=== PATIENT | female | born 1980 | race Caucasian/White ===

== ENCOUNTER 2022-08-29 08:48 | Day surgery (SDC) | payer OTHER ==
[2022-08-22 12:01] LABS: Absolute Lymphocytes (CBC) 1.6 K/uL (0.7-4.9); Hematocrit 45.4 % (36.0-45.0); Lymphocytes % 11.4 % (15.3-44.8); MCV 85.2 fL (80-100); MPV 9.2 fL (7.6-11.3); RBC Red Blood Cell Count 5.33 M/uL (3.86-4.86)
[2022-08-22 12:02] LABS: Protime INR 1.16
[2022-08-22 12:12] LABS: Potassium 3.7 mmol/L (3.5-5.1)
[2022-08-29] MEDS ORDERED: Ringers Lactate 1,000 ML IV ONE (09:26)
[2022-08-29] MEDS ORDERED: CEFAZOLIN SODIUM 2 GM/VIAL ONE (09:26)
[2022-08-29 10:01] LABS: Urine Specific Gravity/Preg >1.030 (1.005-1.030)
[2022-08-29] MEDS ORDERED: NS 0.9% VIAL 10 ML ONE (13:07)
[2022-08-29] MEDS ORDERED: propofoL 200 MG/20 ML VIAL IV ONE (13:07)
[2022-08-29] MEDS ORDERED: LIDOCAINE 1% MPF 5 ML VIAL ONE (13:07)
[2022-08-29] MEDS ORDERED: FENTANYL CITR 100 MCG/2 ML ONE (13:07)
[2022-08-29] MEDS ORDERED: MIDAZOLAM HCL 2 MG/2 ML INJ ONE (13:07)
[2022-08-29] MEDS ORDERED: dexAMETHasone 10 MG/ML VIAL ONE (13:54)
[2022-08-29] MEDS ORDERED: ONDANSETRON 4 MG/2 ML VIAL ONE (13:55)
--- NOTE | 2022-08-29 14:42 | RAD REPORT ---
EXAM DESCRIPTION: RAD - Urethrocystogrphy Retrograde - 08/29/2022 2:32 pm CLINICAL HISTORY: RETROGRADE RT STENT PLACEMENT COMPARISON: Cystography dated 07/28/2022 FINDINGS: Total fluoro time: 18 seconds
[2022-08-29] MEDS ORDERED: PHENAZOPYRIDINE 100MG TAB PO ONE (14:59)
[2022-08-29] MEDS ORDERED: HYDROCODONE/APAP 7.5/325 MG TAB ONE (15:26)
[2022-08-29 15:48] VITALS: BP 109/65; TEMP 97.2; O2SAT 98
[2022-08-29] MEDS ORDERED: KETOROLAC 30 MG/ML INJ IV ONE (16:12)
[2022-08-29] MEDS ORDERED: KETOROLAC 30 MG/ML INJ ONE (16:20)
--- NOTE | 2022-08-29 17:17 | OP ---
Surgeon: TANO COTTRELL Preoperative Diagnoses: 1.Right flank pain, chronic. 2.Extrarenal pelvis. Postoperative Diagnoses: 1.Right flank pain, chronic. 2.Extrarenal pelvis. Principal Procedures: 1.Cystoscopy. 2.Right retrograde pyelography. 3.Right ureteral stent placement. Indication For Procedure: Ms. Jansen presented to [facility] with chronic right flank pain, havi ng undergone imaging that showed no abnormality or obstructing calculus, but suggestion of a potentia l extrarenal pelvis. Since there was a concern for possible UPJ obstruction underlying this pain, e was sent for urologic evaluation. A MAG3 Lasix renogram was performed and revealed an absence of a ny significant obstruction, though there was slight delayed drainage on the right relative to the lef t. As a result only because she was having severe discomfort and this was bothersome for her over an extended period time, we discussed options for assessing whether there might be any obstruction and if relief of that might improve her pain. She thus presents today for evaluation. Procedure In Detail: The patient was consented in the preoperative holding area before being transfe rred to the operative suite where general anesthesia was induced. She was given Ancef 2 g IV antimic robial prophylaxis and pneumo boots were provided for DVT prophylaxis. She was placed in the lithoto my position, padded and secured to the table appropriately. Her genitalia were prepped with Hibiclen s and she was draped in standard fashion. The case was begun using a 22-Andorran rigid cystoscope to t raverse the urethra and into the bladder with ease. The bladder was surveyed in its entirety, and th ere were no papillary mucosal lesions, foreign bodies, or stones throughout. The ureteral orifices w ere orthotopic in location, and non-stenotic in appearance. The right ureteral orifice was then dorene ulated using the tip of a Sensor wire and a 5-Andorran ureteral access catheter with ease. A retrograd e pyelogram was then performed. Right retrograde pyelography: Using a 70:30 mixture of Omnipaque and saline, contrast was injected via the lumen of the 5-Andorran ur eteral access catheter and did propagate up a nondilated distal into the mid and proximal ureter befo re entering the renal pelvis, which did probably fill without signs of pelvocaliectasis. The calyces were sharp and there was no angling of the ureter as it entered the renal pelvis; thus there was no evidence of UPJ obstruction. There were also no filling defects within the renal pelvis or calyces o r within the proximal, mid or distal ureter. The 5-Andorran ureteral access catheter was then removed, and we observed the collecting system for drainage. After 1 minute of observation, there was perhap s 5% to 10% of the drainage that had occurred. After 2 minutes of observation, there was still only about 25% of drainage that occurred by about 4 minutes of observation, over 50% of the contrast had e vacuated the collecting system. There were excellent and adequate ureteral jets noted coming from th e ureteral orifices, which were visible cystoscopically. There was no significant blood draining fro m the collecting system. As a result, to complete the evaluation as previously discussed with the jesus menendez, I then passed the Sensor wire into the collecting system again and coiled it within the upper pole. Over the Sensor wire, I passed a 7-Andorran by 28 cm double-J ureteral stent left on its tether, using a 28-Andorran only because that was the only size we had available that would adequately ivan e the entirety of her collecting system. The stent had a coil observed fluoroscopically within the r enal pelvis and 1 cystoscopically was formed within the bladder. It was left on its tether, which wa s then secured to her introitus using Mastisol and Steri-Strips after I decompressed her bladder of f luid and urine. She was then taken out of the lithotomy position, awakened from general anesthesia, transferred to a stretcher, and then transferred to the recovery room in good condition. Complications: None. Discharge Disposition: She will be allowed the next week and perhaps a couple of days beyond that to assess whether she has significant relief of the character and quality of her pain in the right flan k with the stent in place. If so, we will have to discuss the potential role for management of some functional obstruction without anatomic correlate and potentially look for signs of disease like tiss ue encompassing the ureter that may benefit from surgical therapy. If there is no significant change in the quality or character of her right flank pain, we should remove that stent before next Thursda y at the latest. Since it is on a tether, it may be removed with ease. She may be given a dose of a ntimicrobial prophylaxis, Macrobid, at the time of stent removal. Subsequent followup may require ev aluation of her hepatic biliary tree to assess for obstruction there that may be contributing to her pain versus another vascular or retroperitoneal abnormality potentially contributory. INCHOLAS/KEITH Voice ID: [id number] Report ID: [id number]
== END 2022-08-29 16:51 | disposition home or self-care (01) ==
LOC: OR 08:48
PROVIDERS: ATTEND Urology
PROC: 0T768DZ Dilation of Right Ureter with Intraluminal Device, Via Natural or Artificial Opening Endoscopic (ICD-10-PCS; principal; 2022-08-29 11:00)
DX: R10.31 Right lower quadrant pain (principal); N13.30 Unspecified hydronephrosis; R39.2 Extrarenal uremia
CPT/HCPCS: 93005; 87088; 85025; 87086; 80048; 36415; 81025; 85610; 74450; 51610; 52332; J2704; J2001; J2250; J3010; J1100; A4216; J7120; J2405

== ENCOUNTER 2022-09-07 05:09 | Inpatient (IN) | payer OTHER ==
--- OUTSIDE RECORDS SUMMARY | 2022-09-07 05:15 | XMS REPORT | Continuity of Care Document ---
:1980 Author Organization [facility] t Address [address] [place] [address] Care Team Providers Name Role Phone ORACIO ARGUETA Primary Care Physician Unavailable JENNIFER JACOBS Attending Clinician Unavailable ERA MARTINEZ Attending Clinician Unavailable Jennifer Jacobs MD Attending Clinician Doctor Unassigned, Rhame Attending Clinician Unavailable ERICK SALINAS Attending Clinician Unavailable RADIOLOGY Attending Clinician Unavailable Radiology Attending Clinician Unavailable Aurora Rossi MD Attending Clinician Terence Landry Attending Clinician AURORA ROSSI Attending Clinician Unavailable UNKNOWN, ATTENDING Attending Clinician Unavailable KHOI BRO Attending Clinician Unavailable Khoi Bro MD Attending Clinician JUSTIN SWEET Attending Clinician Unavailable Justin Sweet PA-C Attending Clinician RICKY TEMPLETON Attending Clinician Unavailable RICKY TEMPLETON Attending Clinician Unavailable Ricky Templeton Attending Clinician Bill Watts MD Attending Clinician BLUE AYALA Attending Clinician Unavailable Blue Ayala MD Attending Clinician 2, [facility] Attending Clinician Unavailable MICHEL MALHOTRA Attending Clinician Unavailable SEVEN WILLOUGHBY Attending Clinician Unavailable Seven Willoughby DO Attending Clinician Leonard CHEATHAM, Fozia Stapleton Attending Clinician Unavailable Nita Devries LMSW Attending Clinician Unavailable TERENCE BRAR Attending Clinician Unavailable REMINGTON DIOP Attending Clinician Unavailable ROHAN HERZOG Attending Clinician Unavailable RALEIGH MELISSA Attending Clinician Unavailable DONTA ROSADO Attending Clinician Unavailable DANNIELLE SHAH Attending Clinician Unavailable PRO PETERSON Attending Clinician Unavailable SHERMAN SAMANIEGO Admitting Clinician Unavailable JENNIFER JACOBS Admitting Clinician Unavailable KHOI BRO Admitting Clinician Unavailable JUSTIN SWEET Admitting Clinician Unavailable RICKY TEMPLETON Admitting Clinician Unavailable BLUE AYALA Admitting Clinician Unavailable SEVEN WILLOUGHBY Admitting Clinician Unavailable ROHAN HERZOG Admitting Clinician Unavailable Payers Payer Name Policy Type Policy Number Effective Date Expiration Date S edith [facility] [id number] 2020 HEALTH 00:00:00 [place]ICAID [place] [id number] 2020 00:00:00 [place] [id number] 2021 EMPLOYEE-AETNA 00:00:00 OPEN ACCESS [id number] HMO/POS/EPO/PPO - AETNA [place] [facility] [id number] [employer] AETNA [facility] [id number] 2021 ACCESS 00:00:00 Problems Condition Condition Condition Status Onset Resolution Last Treating Co mments Source Name Details Category Date Date Treatment Clinician Date Other Other Disease Active Univers general general 2-12 [place] counseling [place] and advice and advice 00 [place] dical for [facility] contracept contracept kelby kelby management management Pain Pain Disease Active 2019-07 Univers pelvic pelvic 1-16 ity of 00:: [address] BMI BMI Disease Active 2019-07 Univers 36.0-36.9, 36.0-36.9, 1-16 it y of adult adult 00:00: [address] History of History of Disease Active U nivers tubal tubal 2-20 ity of ligation ligation 00:: [address] Screen for Screen for Disease Active U nivers STD STD 2-20 [place] of (sexually ([place] transmit[place] transmitte 00 Me dical d disease) d disease) Br anch Class 2 Class 2 Disease Active Univers obesity obesity 2-20 [place] with body [place] mass index mass index 00 Me dical (BMI) of (BMI) of Branch 36.0 to 36.0 to 36.9 in 36.9 in adult, adult, unspecifie unspecifie d obesity d obesity type, type, unspecifie unspecifie d whether d whether serious serious comorbidit comorbidit y present y present [id number] Unspecifie Problem Co mmon d Spirit abdominal - [facility] [id number] Other Problem Common chronic Spirit pain - [facility] [id number] Hydronephr Problem Com mon osis, Spirit right - [facility] Allergies, Adverse Reactions, Alerts Allergy Allergy Status Severity Reaction(s) Onset Inactive Treating Comm ents Source Name Type Date Date Clinician LEVONORG DRUG Active Other-Cmnt Univ ers ESTREL-E 916 ity of THINYL 00:00: [place] ESTRAD 00 Medical Branch Levonorg Propensi Active Other - See Itchy U nivers estrel-E ty to comments 16 eyes ity of thinyl adverse 00:00: runny [place] Estrad reaction 00 nose [facility] s Branch PROMETHA DRUG Active Dizziness Unive rs ZINE HCL INGREDI 16 ity of 00:00: Medical Branch Prometha Drug Active Dizziness Unive rs zine Hcl Intolera 16 ity of nce 00:00: [place] [facility] Penicill Propensi Active Anaphylaxis Patient Univers ins ty to 10-21 states ity of adverse 00:00: that [place] reaction 00 mother Medical s told her Branch as a child she was allergic to PCN. Patient states she has previousl y had PCN without any reactions noted. Patient states she tolerates PCN well and has had it in the past. PENICILL Drug Active Anaphylaxis Uni vers INS Class 10-21 ity of 00:00: [place] [facility] Penicill Propensi Active Anaphylaxis Patient Univers ins ty to 10-21 states ity of adverse 00:00: that [place] reaction 00 mother Medical s told her Branch as a child she was allergic to PCN. Patient states she has previousl y had PCN without any reactions noted. Patient states she tolerates PCN well and has had it in the past. NO KNOWN Allergy Active [facility] Social History Social Habit Start Date Stop Date Quantity Comments Source History of Common Spirit - Tobacco Use [facility] Exposure to 2022-05-23 2022-06-02 Not sure University of SARS-CoV-2 00:00:00 09:48:00 [facility] [place] [facility] (event) Branch Alcohol intake 2021-12-20 2021-12-20 Current drinker [facility] Rufina Donovan 00:00:00 00:00:00 of [facility] (finding) Tobacco use and 2021-12-09 2021-12-09 Never used [facility] exposure 00:00:00 00:00:00 Medical Center History [facility] 2020-06-07 2020-06-07 4 University o f Alcohol Frequency 00:00:00 00:00:00 [place] [facility] History SDOH 2020-06-07 2020-06-07 99 University o f Alcohol Std 00:00:00 00:00:00 [place] Medical Drinks Branch History [facility] 2020-06-07 2020-06-07 99 University o f Alcohol Binge 00:00:00 00:00:00 [facility] [place] Alcohol Comment 2020-06-07 2020-06-07 not often Universit y of 00:00:00 00:00:00 [facility] Sex Ass[birth year] At [birth year] [facility] 00:00:00 00:00:00 Medical Center Smoking Status Start Date Stop Date Source Never Smoker Common Spirit - [facility] Medications Ordered Filled Start Stop Current Ordering Indication Dosage Frequency Signature Comments Components Source Medication Medication Date Date Medication? Clinician (SIG) Name Name iopamidol 2021-07- No [id number] 84mL 84 mL, U nivkeith (ISOVUE 08-03 Intravenou ity o f 370-500 mL) 16:45: 15:42 s, ONCE, 1 [place] injection 00 :00 dose, On Medica l 84 mL Sat Branch 06/03/22 at 1045, Routine losartan 50 2021-07- No 25mg Take 25 mg Univers mg tablet 08-02 by mouth ity o f 10:09: 00:00 in the [place] 46 :00 morning. Medical Before Branch bedtime losartan 50 2021-07- No 25mg Take 25 mg Univers mg tablet 08-02 by mouth ity o f 10:09: 00:00 in the [place] 46 :00 morning. Medical Before Branch bedtime losartan 50 2021-07- No 25mg Take 25 mg Univers mg tablet 08-02 by mouth ity o f 10:09: 00:00 in the [place] 46 :00 morning. Medical Before Branch bedtime losartan 50 2021-07- No 25mg Take 25 mg Univers mg tablet 08-02 by mouth ity o f 10:09: 00:00 in the [place] 46 :00 morning. Medical Before Branch bedtime metoprolol 2021-07 Yes [id number] 25mg Take 1 Univers succinate 1-11 tablet by ity o f XL 25 mg 24 00:00: mouth in [place] hr tablet 00 the Medical morning. Branch metoprolol 2021-07 Yes [id number] 25mg Take 1 Univers succinate 1-11 tablet by ity o f XL 25 mg 24 00:00: mouth in [place] hr tablet 00 the Medical morning. Branch metoprolol 2021-07 Yes [id number] 25mg Take 1 Univers succinate 1-11 tablet by ity o f XL 25 mg 24 00:00: mouth in [place] hr tablet 00 the Medical morning. Branch metoprolol 2021-07 Yes [id number] 25mg Take 1 Univers succinate 1-11 tablet by ity o f XL 25 mg 24 00:00: mouth in [place] hr tablet 00 the Medical morning. Branch metoprolol 2021-07 Yes [id number] 25mg Take 1 Univers succinate 1-11 tablet by ity o f XL 25 mg 24 00:00: mouth in [place] hr tablet 00 the Medical morning. Branch metoprolol 2021-07 Yes [id number] 25mg Take 1 Univers succinate 1-11 tablet by ity o f XL 25 mg 24 00:00: mouth in [place] hr tablet 00 the Medical morning. Branch metoprolol 2021-07 Yes [id number] 25mg Take 1 Univers succinate 1-11 tablet by ity o f XL 25 mg 24 00:00: mouth in [place] hr tablet 00 the Medical morning. Branch metoprolol 2021-07 Yes [id number] 25mg Take 1 Univers succinate 1-11 tablet by ity o f XL 25 mg 24 00:00: mouth in [place] hr tablet 00 the Medical morning. Branch metoprolol 2021-07 Yes [id number] 25mg Take 1 Univers succinate 1-11 tablet by ity o f XL 25 mg 24 00:00: mouth in [place] hr tablet 00 the Medical morning. Branch metoprolol 2021-07 Yes [id number] 25mg Take 1 Univers succinate 1-11 tablet by ity o f XL 25 mg 24 00:00: mouth in [place] hr tablet 00 the Medical morning. Branch metoprolol 2021-07 Yes [id number] 25mg Take 1 Univers succinate 1-11 tablet by ity o f XL 25 mg 24 00:00: mouth in [place] hr tablet 00 the Medical morning. Branch metoprolol 2021-07 Yes [id number] 25mg Take 1 Univers succinate 1-11 tablet by ity o f XL 25 mg 24 00:00: mouth in [place] hr tablet 00 the Medical morning. Branch metoprolol 2021-07 Yes [id number] 25mg Take 1 Univers succinate 1-11 tablet by ity o f XL 25 mg 24 00:00: mouth in [place] hr tablet 00 the Medical morning. Branch metoprolol 2021-07 Yes [id number] 25mg Take 1 Univers succinate 1-11 tablet by ity o f XL 25 mg 24 00:00: mouth in [place] hr tablet 00 the Medical morning. Branch metoprolol 2021-07 Yes [id number] 25mg Take 1 Univers succinate 1-11 tablet by ity o f XL 25 mg 24 00:00: mouth in [place] hr tablet 00 the Medical morning. Branch metoprolol 2021-07 Yes [id number] 25mg Take 1 Univers succinate 1-11 tablet by ity o f XL 25 mg 24 00:00: mouth in [place] hr tablet 00 the Medical morning. Branch metoprolol 2021-07 Yes [id number] 25mg Take 1 Univers succinate 1-11 tablet by ity o f XL 25 mg 24 00:00: mouth [place] hr tablet 00 the Medical morning. Branch ketorolac 2021-07- No [id number] 30mg Uni vers (TORADOL) 07-31 ity of injection 01:00: 00:23 [place] 30 mg 00 :00 [facility] ketorolac 2021-07- No [id number] 30mg 30 mg, U nivers (TORADOL) 07-31 Intramuscu ity of injection 01:00: 00:23 [place], ONCE, [place] 30 mg 00 :00 1 dose, On Medical Tue Branch 05/30/22 at 1900, Routine tamsulosin 2021-07 Yes [id number] .4mg Take 1 U nivers (FLOMAX) 1-08 capsule by ity o f 0.4 mg 24 00:00: [place] capsule 00 the Medical morning. [place] tamsulosin 2021-07 Yes [id number] .4mg Take 1 U nivers (FLOMAX) 1-08 capsule by ity o f 0.4 mg 24 00:00: [place] capsule 00 the Medical morning. Branch tamsulosin 2021-07 Yes [id number] .4mg Take 1 U nivers (FLOMAX) 1-08 capsule by ity o f 0.4 mg 24 00:00: [place] capsule 00 the Medical morning. [place] tamsulosin 2021-07 Yes [id number] .4mg Take 1 U nivers (FLOMAX) 1-08 capsule by ity o f 0.4 mg 24 00:00: [place] capsule 00 the Medical morning. Branch tamsulosin 2021-07 Yes [id number] .4mg Take 1 U nivers (FLOMAX) 1-08 capsule by ity o f 0.4 mg 24 00:00: [place] capsule 00 the Medical morning. Branch tamsulosin 2021-07 Yes [id number] .4mg Take 1 U nivers (FLOMAX) 1-08 capsule by ity o f 0.4 mg 24 00:00: [place] capsule 00 the Medical morning. Branch tamsulosin 2021-07 Yes [id number] .4mg Take 1 U nivers (FLOMAX) 1-08 capsule by ity o f 0.4 mg 24 00:00: [place] hr capsule 00 the Medical morning. Branch tamsulosin 2021-07 Yes [id number] .4mg Take 1 U nivers (FLOMAX) 1-08 capsule by ity o f 0.4 mg 24 00:00: [place] hr capsule 00 the Medical morning. Branch tamsulosin 2021-07 Yes [id number] .4mg Take 1 U nivers (FLOMAX) 1-08 capsule by ity o f 0.4 mg 24 00:00: [place] hr capsule 00 the Medical morning. Branch tamsulosin 2021-07 Yes [id number] .4mg Take 1 U nivers (FLOMAX) 1-08 capsule by ity o f 0.4 mg 24 00:00: [place] hr capsule 00 the Medical morning. Branch tamsulosin 2021-07 Yes [id number] .4mg Take 1 U nivers (FLOMAX) 1-08 capsule by ity o f 0.4 mg 24 00:00: [place] hr capsule 00 the Medical morning. Branch tamsulosin 2021-07 Yes [id number] .4mg Take 1 U nivers (FLOMAX) 1-08 capsule by ity o f 0.4 mg 24 00:00: [place] hr capsule 00 the Medical morning. Branch tamsulosin 2021-07 Yes [id number] .4mg Take 1 U nivers (FLOMAX) 1-08 capsule by ity o f 0.4 mg 24 00:00: [place] hr capsule 00 the Medical morning. Branch tamsulosin 2021-07 Yes [id number] .4mg Take 1 U nivers (FLOMAX) 1-08 capsule by ity o f 0.4 mg 24 00:00: [place] capsule 00 the Medical morning. Branch tamsulosin 2021-07 Yes [id number] .4mg Take 1 U nivers (FLOMAX) 1-08 capsule by ity o f 0.4 mg 24 00:00: [place] hr capsule 00 the Medical morning. Branch tamsulosin 2021-07 Yes [id number] .4mg Take 1 U nivers (FLOMAX) 1-08 capsule by ity o f 0.4 mg 24 00:00: mouth [place] hr capsule 00 the Medical morning. Branch tamsulosin 2021-07 Yes [id number] .4mg Take 1 U nivers (FLOMAX) 1-08 capsule by ity o f 0.4 mg 24 00:00: mouth [place] hr capsule 00 the Medical morning. Branch tamsulosin 2021-07 Yes [id number] .4mg Take 1 U nivers (FLOMAX) 1-08 capsule by ity o f 0.4 mg 24 00:00: [place] hr capsule 00 the Medical morning. Branch ciprofloxac 2021-07- No [id number] 250mg Take 1 Univers in HCl 250 07-30-14 tablet by ity of mg tablet 00:00: 05:59 mouth [place] 00 :00 every 12 Medical (twelve) Branch hours for 5 days. ciprofloxac 2021-07- No [id number] 250mg Take 1 Univers in HCl 250 07-3014 tablet by ity of mg tablet 00:00: 05:59 mouth [place] 00 :00 every 12 Medical (twelve) Branch hours for 5 days. ciprofloxac 2021-07- No [id number] 250mg Take 1 Univers in HCl 250 07-3014 tablet by ity of mg tablet 00:00: 05:59 mouth [place] 00 :00 every 12 Medical (twelve) Branch hours for 5 days. ciprofloxac 2021-07- No [id number] 250mg Take 1 Univers in HCl 250 07-3014 tablet by ity of mg tablet 00:00: 05:59 mouth [place] 00 :00 every 12 Medical (twelve) Branch hours for 5 days. ciprofloxac 2021-07- No [id number] 250mg Take 1 Univers in HCl 250 07-3014 tablet by ity of mg tablet 00:00: 05:59 mouth [place] 00 :00 every 12 Medical (twelve) Branch hours for 5 days. ciprofloxac 2021-07- No [id number] 250mg Take 1 Univers in HCl 250 07-30-14 tablet by ity of mg tablet 00:00: 05:59 mouth [place] 00 :00 every 12 Medical (twelve) Branch hours for 5 days. losartan 50 2021-07 Yes 25mg Take 25 mg Univers mg tablet 07-23 by mouth ity of 13:56: in the [place] [address] morning. Medical Before Branch bedtime losartan 50 2021-07 Yes 25mg Take 25 mg Univers mg tablet 01 by mouth ity of 13:56: in the [place] [address] morning. Medical Before Branch bedtime losartan 50 2021-07 Yes 25mg Take 25 mg Univers mg tablet 01 by mouth ity of 13:56: in the [place] [address] morning. Medical Before Branch bedtime losartan 50 2021-07 Yes 25mg Take 25 mg Univers mg tablet 07-23 by mouth ity of 13:56: in the [place] [address] morning. Medical Before Branch bedtime ketorolac 2021- No [id number] 30mg 30 mg, Univers (TORADOL) 04-07 Slow IV ity of injection 11:15: 10:14 Push, [place] 30 mg 00 :00 ONCE, 1 Medical dose, On Branch 04/07/22 at 0615, Routine azithromyci 2021- No [id number] 250mg Take 1 Univers n 250 mg 04-07 tablet by ity o f tablet 00:00: 04:59 mouth [place] 00 :00 SEE-INSTRU Medical CTIONS for Branch 5 days. Take 500 mg day 1, then 250 mg days 2 to 5. losartan Yes 25mg QD Take [address] (COZAAR) 25 12-21 by mouth [facility] MG tablet 14:55: daily. Medica l 01 Center omeprazole Yes 40mg QD Take [address] (PriLOSEC) 6 by mouth [facility] 40 MG 14:55: daily. Medical capsule 01 Center dicyclomine Yes 10mg Take [address] [facility] [facility] (BENTYL) 10 6-01 by mouth 4 Katty kes MG capsule 14:55: (four) Medic al 01 times Center daily before meals and nightly. barium 2021- No [id number] 340g 340 g, Univ ers sulfate 12-07 Oral, ity of (LIQUID E-Z 16:15: 13:00 ONCE, 1 [place] PAQUE[place] 60 % 00 :00 dose, On Medi chayito (w/v) oral Wed Branch suspension 12/07/21 at 340 g 1115, Routine Diclofenac 2022-0 Yes diclofenac U nivers Sodium 1 % 5-05 1 % ity of gel 09:29: topical [place] 38 gel APPLY Medical 2 GRAMS TO Branch THE AFFECTED AREA(S) BY TOPICAL ROUTE 4 TIMES PER DAY Diclofenac 2021-0 Yes diclofenac U nivers Sodium 1 % 5-05 1 % ity of gel 09:29: topical [place] 38 gel APPLY Medical 2 GRAMS TO Branch THE AFFECTED AREA(S) BY TOPICAL ROUTE 4 TIMES PER DAY Diclofenac 2021-0 Yes diclofenac U nivers Sodium 1 % 5-05 1 % ity of gel 09:29: topical [place] 38 gel APPLY Medical 2 GRAMS TO Branch THE AFFECTED AREA(S) BY TOPICAL ROUTE 4 TIMES PER DAY Diclofenac 2021-0 Yes diclofenac U nivers Sodium 1 % 5-05 1 % ity of gel 09:29: topical [place] 38 gel APPLY Medical 2 GRAMS TO Branch THE AFFECTED AREA(S) BY TOPICAL ROUTE 4 TIMES PER DAY Diclofenac Yes diclofenac U nivers Sodium 1 % 5-05 1 % ity of gel 09:29: topical [place] 38 gel APPLY Medical 2 GRAMS TO Branch THE AFFECTED AREA(S) BY TOPICAL ROUTE 4 TIMES PER DAY Diclofenac 2021- Yes diclofenac U nivers Sodium 1 % 5-05 1 % ity of gel 09:29: topical [place] 38 gel APPLY Medical 2 GRAMS TO Branch THE AFFECTED AREA(S) BY TOPICAL ROUTE 4 TIMES PER DAY Diclofenac 0 Yes diclofenac U nivers Sodium 1 % 5-05 1 % ity of gel 09:29: topical [place] 38 gel APPLY Medical 2 GRAMS TO Branch THE AFFECTED AREA(S) BY TOPICAL ROUTE 4 TIMES PER DAY Diclofenac 2021-0 Yes diclofenac U nivers Sodium 1 % 5-05 1 % ity of gel 09:29: topical [place] 38 gel APPLY Medical 2 GRAMS TO Branch THE AFFECTED AREA(S) BY TOPICAL ROUTE 4 TIMES PER DAY Diclofenac 2021-0 Yes diclofenac U nivers Sodium 1 % 5-05 1 % ity of gel 09:29: topical [place] 38 gel APPLY Medical 2 GRAMS TO Branch THE AFFECTED AREA(S) BY TOPICAL ROUTE 4 TIMES PER DAY Diclofenac 2021-0 Yes diclofenac U nivers Sodium 1 % 5-05 1 % ity of gel 09:29: topical [place] 38 gel APPLY Medical 2 GRAMS TO Branch THE AFFECTED AREA(S) BY TOPICAL ROUTE 4 TIMES PER DAY Diclofenac 2021-0 Yes diclofenac U nivers Sodium 1 % 5-05 1 % ity of gel 09:29: topical [place] 38 gel APPLY Medical 2 GRAMS TO Branch THE AFFECTED AREA(S) BY TOPICAL ROUTE 4 TIMES PER DAY Diclofenac 2022-0 Yes diclofenac U nivers Sodium 1 % 5-05 1 % ity of gel 09:29: topical [place] 38 gel APPLY Medical 2 GRAMS TO Branch THE AFFECTED AREA(S) BY TOPICAL ROUTE 4 TIMES PER DAY Diclofenac 2021-0 Yes diclofenac U nivers Sodium 1 % 5-05 1 % ity of gel 09:29: topical [place] 38 gel APPLY Medical 2 GRAMS TO Branch THE AFFECTED AREA(S) BY TOPICAL ROUTE 4 TIMES PER DAY Diclofenac 2021-0 Yes diclofenac U nivers Sodium 1 % 5-05 1 % ity of gel 09:29: topical [place] 38 gel APPLY Medical 2 GRAMS TO Branch THE AFFECTED AREA(S) BY TOPICAL ROUTE 4 TIMES PER DAY Diclofenac 2021-0 Yes diclofenac U nivers Sodium 1 % 5-05 1 % ity of gel 09:29: topical [place] 38 gel APPLY Medical 2 GRAMS TO Branch THE AFFECTED AREA(S) BY TOPICAL ROUTE 4 TIMES PER DAY Diclofenac 2021-0 Yes diclofenac U nivers Sodium 1 % 5-05 1 % ity of gel 09:29: topical [place] 38 gel APPLY Medical 2 GRAMS TO Branch THE AFFECTED AREA(S) BY TOPICAL ROUTE 4 TIMES PER DAY Diclofenac 2021-0 Yes diclofenac U nivers Sodium 1 % 5-05 1 % ity of gel 09:29: topical [place] 38 gel APPLY Medical 2 GRAMS TO Branch THE AFFECTED AREA(S) BY TOPICAL ROUTE 4 TIMES PER DAY Diclofenac 2021-0 Yes diclofenac U nivers Sodium 1 % 5-05 1 % ity of gel 09:29: topical [place] 38 gel APPLY Medical 2 GRAMS TO Branch THE AFFECTED AREA(S) BY TOPICAL ROUTE 4 TIMES PER DAY Diclofenac 2021-0 Yes diclofenac U nivers Sodium 1 % 5-05 1 % ity of gel 09:29: topical [place] 38 gel APPLY Medical 2 GRAMS TO Branch THE AFFECTED AREA(S) BY TOPICAL ROUTE 4 TIMES PER DAY Diclofenac 202-0 Yes diclofenac U nivers Sodium 1 % 5-05 1 % ity of gel 09:29: topical [place] 38 gel APPLY Medical 2 GRAMS TO Branch THE AFFECTED AREA(S) BY TOPICAL ROUTE 4 TIMES PER DAY Diclofenac 202-0 Yes diclofenac U nivers Sodium 1 % 5-05 1 % ity of gel 09:29: topical [place] 38 gel APPLY Medical 2 GRAMS TO Branch THE AFFECTED AREA(S) BY TOPICAL ROUTE 4 TIMES PER DAY Diclofenac 202-0 Yes diclofenac U nivers Sodium 1 % 5-05 1 % ity of gel 09:29: topical [place] 38 gel APPLY Medical 2 GRAMS TO Branch THE AFFECTED AREA(S) BY TOPICAL ROUTE 4 TIMES PER DAY Diclofenac 2021-0 Yes diclofenac U nivers Sodium 1 % 5-05 1 % ity of gel 09:29: topical [place] 38 gel APPLY Medical 2 GRAMS TO Branch THE AFFECTED AREA(S) BY TOPICAL ROUTE 4 TIMES PER DAY Diclofenac 2021-0 Yes diclofenac U nivers Sodium 1 % 5-05 1 % ity of gel 09:29: topical [place] 38 gel APPLY Medical 2 GRAMS TO Branch THE AFFECTED AREA(S) BY TOPICAL ROUTE 4 TIMES PER DAY Diclofenac Yes diclofenac U nivers Sodium 1 % 5-05 1 % ity of gel 09:29: topical [place] 38 gel APPLY Medical 2 GRAMS TO Branch THE AFFECTED AREA(S) BY TOPICAL ROUTE 4 TIMES PER DAY Diclofenac 2021- Yes diclofenac U nivers Sodium 1 % 5-05 1 % ity of gel 09:29: topical [place] 38 gel APPLY Medical 2 GRAMS TO Branch THE AFFECTED AREA(S) BY TOPICAL ROUTE 4 TIMES PER DAY Diclofenac 2021-0 Yes diclofenac U nivers Sodium 1 % 5-05 1 % ity of gel 09:29: topical [place] 38 gel APPLY Medical 2 GRAMS TO Branch THE AFFECTED AREA(S) BY TOPICAL ROUTE 4 TIMES PER DAY Diclofenac 2021-0 Yes diclofenac U nivers Sodium 1 % 5-05 1 % ity of gel 09:29: topical [place] 38 gel APPLY Medical 2 GRAMS TO Branch THE AFFECTED AREA(S) BY TOPICAL ROUTE 4 TIMES PER DAY Diclofenac 2021-0 Yes diclofenac U nivers Sodium 1 % 5-05 1 % ity of gel 09:29: topical [place] 38 gel APPLY Medical 2 GRAMS TO Branch THE AFFECTED AREA(S) BY TOPICAL ROUTE 4 TIMES PER DAY Diclofenac 0 Yes diclofenac U nivers Sodium 1 % 5-05 1 % ity of gel 09:29: topical [place] 38 gel APPLY Medical 2 GRAMS TO Branch THE AFFECTED AREA(S) BY TOPICAL ROUTE 4 TIMES PER DAY WEGOVY 0.5 Yes Univers mg/0.5 mL 3- ity of PnIj SC 00:00: [place] injection 00 Medical Branch omeprazole 0 Yes Univers 40 mg 3-29 ity of capsule 00:00: Medical Branch WEGOVY 0.5 2021-0 Yes Univers mg/0.5 mL 3-29 ity of PnIj SC 00:00: [place] injection Medical Branch omeprazole 2021-0 Yes Univers 40 mg 3-29 ity of capsule 00:00: Medical Branch WEGOVY 0.5 2021-0 Yes Univers mg/0.5 mL 3-29 ity of PnIj SC 00:00: [place] injection Medical Branch omeprazole 0 Yes Univers 40 mg 3-29 ity of capsule 00:00: [place] [facility] WEGOVY 0.5 0 Yes Univers mg/0.5 mL 3-29 ity of PnIj SC 00:00: [place] injection Medical Branch omeprazole 0 Yes Univers 40 mg 3-29 ity of capsule 00:00: [place] [facility] WEGOVY 0.5 0 Yes Univers mg/0.5 mL 3-29 ity of PnIj SC 00:00: [place] injection Medical Branch omeprazole 2021-0 Yes Univers 40 mg 3-29 ity of capsule 00:00: [place] [facility] WEGOVY 0.5 2021-0 Yes Univers mg/0.5 mL 3-29 ity of PnIj SC 00:00: [place] injection Medical Branch omeprazole 2021-0 Yes Univers 40 mg 3-29 ity of capsule 00:00: [place] [facility] WEGOVY 0.5 2021-0 Yes Univers mg/0.5 mL 3-29 ity of PnIj SC 00:00: [place] injection Medical Branch omeprazole 2021-0 Yes Univers 40 mg 3-29 ity of capsule 00:00: [place] [facility] WEGOVY 0.5 2021-0 Yes Univers mg/0.5 mL 3-29 ity of PnIj SC 00:00: [place] injection Medical Branch omeprazole 2021-0 Yes Univers 40 mg 3-29 ity of capsule 00:00: [place] [facility] WEGOVY 0.5 2021-0 Yes Univers mg/0.5 mL 3-29 ity of PnIj SC 00:00: [place] injection Medical Branch omeprazole 2021-0 Yes Univers 40 mg 3-29 ity of capsule 00:00: [place] [facility] Branch WEGOVY 0.5 2021-0 Yes Univers mg/0.5 mL 3-29 ity of PnIj SC 00:00: [place] injection Medical Branch omeprazole 2021-0 Yes Univers 40 mg 3-29 ity of capsule 00:00: [place] Medical Branch WEGOVY 0.5 2021-0 Yes Univers mg/0.5 mL 3-29 ity of PnIj SC 00:00: [place] injection [facility] omeprazole 2021-0 Yes Univers 40 mg 3-29 ity of capsule 00:00: [place] [facility] WEGOVY 0.5 2021-0 Yes Univers mg/0.5 mL 3-29 ity of PnIj [place] 00:00: [place] [facility] omeprazole 2021-0 Yes Univers 40 mg 3-29 ity of capsule 00:00: [place] [facility] WEGOVY 0.5 2021-0 Yes Univers mg/0.5 mL 3-29 ity of PnIj [place] 00:00: [place] [facility] omeprazole 2021-0 Yes Univers 40 mg 3-29 ity of capsule 00:00: [place] [facility] WEGOVY 0.5 2021-0 Yes Univers mg/0.5 mL 3-29 ity of PnIj [place] 00:00: [place] injection [facility] omeprazole 2021-0 Yes Univers 40 mg 3-29 ity of capsule 00:00: [place] [facility] WEGOVY 0.5 2021-0 Yes Univers mg/0.5 mL 3-29 ity of PnIj [place] 00:00: [place] [facility] omeprazole 2021-0 Yes Univers 40 mg 3-29 ity of capsule 00:00: [place] [facility] WEGOVY 0.5 2021-0 Yes Univers mg/0.5 mL 3-29 ity of PnIj SC 00:00: [place] injection [facility] omeprazole 2021-0 Yes Univers 40 mg 3-29 ity of capsule 00:00: [place] [facility] WEGOVY 0.5 2021-0 Yes Univers mg/0.5 mL 3-29 ity of PnIj [place] 00:00: [place] [facility] omeprazole 2022-0 Yes Univers 40 mg 3-29 ity of capsule 00:00: [place] 00 [facility] WEGOVY 0.5 2-0 Yes Univers mg/0.5 mL 3-29 ity of PnIj SC 00:00: [place] injection 00 Medical Branch omeprazole 2-0 Yes Univers 40 mg 3-29 ity of capsule 00:00: [place] [facility] WEGOVY 0.5 2022-0 Yes Univers mg/0.5 mL 3-29 ity of PnIj SC 00:00: [place] injection [facility] omeprazole 2021-0 Yes Univers 40 mg 3-29 ity of capsule 00:00: [place] 00 [facility] WEGOVY 0.5 2021-0 Yes Univers mg/0.5 mL 3-29 ity of PnIj SC 00:00: [place] injection [facility] omeprazole 2021-0 Yes Univers 40 mg 3-29 ity of capsule 00:00: [place] [facility] WEGOVY 0.5 2021-0 Yes Univers mg/0.5 mL 3-29 ity of PnIj SC 00:00: [place] injection [facility] omeprazole 2021-0 Yes Univers 40 mg 3-29 ity of capsule 00:00: [place] [facility] WEGOVY 0.5 2021-0 Yes Univers mg/0.5 mL 3-29 ity of PnIj SC 00:00: [place] [facility] omeprazole 2021-0 Yes Univers 40 mg 3-29 ity of capsule 00:00: [place] [facility] WEGOVY 0.5 2-0 Yes Univers mg/0.5 mL 3-29 ity of PnIj SC 00:00: [place] [facility] omeprazole 2-0 Yes Univers 40 mg 3-29 ity of capsule 00:00: [place] 00 [facility] WEGOVY 0.5 2-0 Yes Univers mg/0.5 mL 3-29 ity of PnIj SC 00:00: [place] [facility] omeprazole 2-0 Yes Univers 40 mg 3-29 ity of capsule 00:00: [place] [facility] WEGOVY 0.5 2022-0 Yes Univers mg/0.5 mL 3-29 ity of PnIj SC 00:00: [place] [facility] omeprazole 2021-0 Yes Univers 40 mg 3-29 ity of capsule 00:00: [place] 00 [facility] WEGOVY 0.5 2021-0 Yes Univers mg/0.5 mL 3-29 ity of PnIj SC 00:00: [place] injection 00 Medical Branch omeprazole 2-0 Yes Univers 40 mg 3-29 ity of capsule 00:00: [place] 00 [facility] WEGOVY 0.5 2-0 Yes Univers mg/0.5 mL 3-29 ity of PnIj SC 00:00: [place] injection 00 Medical Branch omeprazole 2021-0 Yes Univers 40 mg 3-29 ity of capsule 00:00: [place] 00 [facility] WEGOVY 0.5 2021-0 Yes Univers mg/0.5 mL 3-29 ity of PnIj SC 00:00: [place] injection 00 Medical Branch omeprazole 2021-0 Yes Univers 40 mg 3-29 ity of capsule 00:00: [place] 00 [facility] WEGOVY 0.5 2021-0 Yes Univers mg/0.5 mL 3-29 ity of PnIj SC 00:00: [place] injection 00 Medical Branch omeprazole 2021-0 Yes Univers 40 mg 3-29 ity of capsule 00:00: [place] 00 [facility] WEGOVY 0.5 2021-0 Yes Univers mg/0.5 mL 3-29 ity of PnIj SC 00:00: [place] injection 00 Medical Branch omeprazole 2021-0 Yes Univers 40 mg 3-29 ity of capsule 00:00: [place] 00 [facility] azithromyci 2-0 Yes [id number] 250mg Take 1 Univers n 250 mg 2-02 tablet by ity of tablet 00:00: mouth 00 daily. Medical Branch azithromyci 2021-0 Yes [id number] 250mg Take 1 Univers n 250 mg 2-02 tablet by ity of tablet 00:00: mouth 00 daily. Medical Branch azithromyci 2-0 Yes [id number] 250mg Take 1 Univers n 250 mg 2-02 tablet by ity of tablet 00:00: mouth 00 daily. Medical Branch azithromyci 2021-0 Yes [id number] 250mg Take 1 Univers n 250 mg 2-02 tablet by ity of tablet 00:00: mouth 00 daily. Medical Branch azithromyci 2021-0 Yes [id number] 250mg Take 1 Univers n 250 mg 2-02 tablet by ity of tablet 00:00: mouth [place] 00 daily. Medical Branch azithromyci 2021-0 Yes [id number] 250mg Take 1 Univers n 250 mg 2-02 tablet by ity of tablet 00:00: mouth [place] 00 daily. Medical [facility] azithromyci 2021-0 Yes [id number] 250mg Take 1 Univers n 250 mg 2-02 tablet by ity of tablet 00:00: mouth [place] 00 daily. Medical Branch azithromyci 0 2021- No [id number] 250mg Take 1 Univers n 250 mg 2-02 09-16 tablet by ity o f tablet 00:00: 00:00 mouth [place] 00 :00 daily. Medical Branch metroNIDAZO Yes [id number] 500mg Take 1 Univers LE 500 mg 2-17 tablet by ity o f tablet 00:00: mouth 00 (two) Medical times Branch daily. metroNIDAZO Yes [id number] 500mg Take 1 Univers LE 500 mg 2-17 tablet by ity o f tablet 00:00: mouth (two) Medical times Branch daily. metroNIDAZO Yes [id number] 500mg Take 1 Univers LE 500 mg 2-17 tablet by ity o f tablet 00:00: mouth (two) Medical times Branch daily. metroNIDAZO 0 Yes [id number] 500mg Take 1 Univers LE 500 mg 2-17 tablet by ity o f tablet 00:00: mouth (two) Medical times Branch daily. metroNIDAZO Yes [id number] 500mg Take 1 Univers LE 500 mg 2-17 tablet by ity o f tablet 00:00: mouth 00 (two) Medical times Branch daily. metroNIDAZO 2020-0 Yes [id number] 500mg Take 1 Univers LE 500 mg 2-17 tablet by ity o f tablet 00:00: mouth (two) Medical times Branch daily. metroNIDAZO 2020-0 Yes [id number] 500mg Take 1 Univers LE 500 mg 2-17 tablet by ity o f tablet 00:00: mouth 2 (two) Medical times Branch daily. metroNIDAZO 2020-0 Yes [id number] 500mg Take 1 Univers LE 500 mg 2-17 tablet by ity o f tablet 00:00: mouth (two) Medical times Branch daily. metroNIDAZO 2020-0 Yes [id number] 500mg Take 1 Univers LE 500 mg 2-17 tablet by ity o f tablet 00:00: mouth (two) Medical times Branch daily. metroNIDAZO 0 Yes [id number] 500mg Take 1 Univers LE 500 mg 2-17 tablet by ity o f tablet 00:00: mouth (two) Medical times Branch daily. metroNIDAZO 0 Yes [id number] 500mg Take 1 Univers LE 500 mg 2-17 tablet by ity o f tablet 00:00: mouth (two) Medical times Branch daily. metroNIDAZO 0 Yes [id number] 500mg Take 1 Univers LE 500 mg 2-17 tablet by ity o f tablet 00:00: mouth (two) Medical times Branch daily. metroNIDAZO Yes [id number] 500mg Take 1 Univers LE 500 mg 2-17 tablet by ity o f tablet 00:00: mouth (two) Medical times Branch daily. metroNIDAZO Yes [id number] 500mg Take 1 Univers LE 500 mg 2-17 tablet by ity o f tablet 00:00: mouth (two) Medical times Branch daily. metroNIDAZO Yes [id number] 500mg Take 1 Univers LE 500 mg 2-17 tablet by ity o f tablet 00:00: mouth (two) Medical times Branch daily. metroNIDAZO 0 Yes [id number] 500mg Take 1 Univers LE 500 mg 2-17 tablet by ity o f tablet 00:00: mouth (two) Medical times Branch daily. metroNIDAZO 2020-0 Yes [id number] 500mg Take 1 Univers LE 500 mg 2-17 tablet by ity o f tablet 00:00: mouth (two) Medical times Branch daily. metroNIDAZO 2020-0 Yes [id number] 500mg Take 1 Univers LE 500 mg 2-17 tablet by ity o f tablet 00:00: mouth (two) Medical times Branch daily. metroNIDAZO 2020-0 Yes [id number] 500mg Take 1 Univers LE 500 mg 2-17 tablet by ity o f tablet 00:00: mouth (two) Medical times Branch daily. metroNIDAZO 2020-0 Yes [id number] 500mg Take 1 Univers LE 500 mg 2-17 tablet by ity o f tablet 00:00: mouth (two) Medical times Branch daily. metroNIDAZO 0 Yes [id number] 500mg Take 1 Univers LE 500 mg 2-17 tablet by ity o f tablet 00:00: mouth (two) Medical times Branch daily. metroNIDAZO 0 Yes [id number] 500mg Take 1 Univers LE 500 mg 2-17 tablet by ity o f tablet 00:00: mouth (two) Medical times Branch daily. metroNIDAZO 0 Yes [id number] 500mg Take 1 Univers LE 500 mg 2-17 tablet by ity o f tablet 00:00: mouth (two) Medical times Branch daily. metroNIDAZO Yes [id number] 500mg Take 1 Univers LE 500 mg 2-17 tablet by ity o f tablet 00:00: mouth (two) Medical times Branch daily. metroNIDAZO 0 Yes [id number] 500mg Take 1 Univers LE 500 mg 2-17 tablet by ity o f tablet 00:00: mouth (two) Medical times Branch daily. metroNIDAZO 0 Yes [id number] 500mg Take 1 Univers LE 500 mg 2-17 tablet by ity o f tablet 00:00: mouth (two) Medical times Branch daily. metroNIDAZO 2020-0 Yes [id number] 500mg Take 1 Univers LE 500 mg 2-17 tablet by ity o f tablet 00:00: mouth (two) Medical times Branch daily. metroNIDAZO 2020-0 Yes [id number] 500mg Take 1 Univers LE 500 mg 2-17 tablet by ity o f tablet 00:00: mouth (two) Medical times Branch daily. metroNIDAZO 2020-0 Yes [id number] 500mg Take 1 Univers LE 500 mg 2-17 tablet by ity o f tablet 00:00: mouth (two) Medical times Branch daily. metroNIDAZO Yes [id number] 500mg Take 1 Univers LE 500 mg 2-17 tablet by ity o f tablet 00:00: mouth 2 [place] (two) Medical times Branch daily. losartan 50 2019-07 Yes 50mg Take 50 mg Univers mg tablet 1-16 by mouth ity of 14:01: daily. Before Medical bedtime Branch losartan 50 2019-07 Yes 50mg Take 50 mg Univers mg tablet 1-16 by mouth ity of 14:01: daily. Before Medical bedtime Branch losartan 50 2019-07 Yes 50mg Take 50 mg Univers mg tablet 1-16 by mouth ity of 14:01: daily. Before Medical bedtime Branch losartan 50 2019-07 Yes 50mg Take 50 mg Univers mg tablet 1-16 by mouth ity of 14:01: daily. Before Medical bedtime Branch losartan 50 2019-07 Yes 50mg Take 50 mg Univers mg tablet 1-16 by mouth ity of 14:01: daily. Before Medical bedtime Branch losartan 50 2019-07 Yes 50mg Take 50 mg Univers mg tablet 1-16 by mouth ity of 14:01: daily. Before Medical bedtime Branch losartan 50 2019-07 Yes 50mg Take 50 mg Univers mg tablet 1-16 by mouth ity of 14:01: daily. Before Medical bedtime Branch losartan 50 2019-07 Yes 50mg Take 50 mg Univers mg tablet 1-16 by mouth ity of 14:01: daily. [place] Before Medical bedtime Branch Toprol XL Toprol XL No 1{table QD Toprol XL 25 MG 25 MG t} 25 MG Toprol XL Toprol XL No 1{table QD Toprol XL 25 MG 25 MG t} 25 MG Immunizations Ordered Filled Immunization Date Status Comments [facility] e Immunization Name Name Influenza Virus 2012-04-29 Completed Universit y of Vaccine 00:00:00 [facility] Influenza Virus 2012-04-29 Completed Universit y of Vaccine 00:00:00 [facility] Influenza Virus 2012-04-29 Completed Universit y of Vaccine 00:00:00 [facility] Influenza Virus 2012-04-29 Completed Universit y of Vaccine 00:00:00 [facility] Influenza Virus 2012-04-29 Completed Universit y of Vaccine 00:00:00 [facility] Influenza Virus 2012-04-29 Completed Universit y of Vaccine 00:00:00 [facility] Influenza Virus 2012-04-29 Completed Universit y of Vaccine 00:00:00 [facility] Influenza Virus 2012-04-29 Completed Universit y of Vaccine 00:00:00 [place] [facility] Influenza Virus 2012-04-29 Completed Universit y of Vaccine 00:00:00 [facility] Influenza Virus 2012-04-29 Completed Universit y of Vaccine 00:00:00 [facility] Influenza Virus 2012-04-29 Completed Universit y of Vaccine 00:00:00 [place] [facility] Branch Influenza Virus 2012-04-29 Completed Universit y of Vaccine 00:00:00 [facility] Influenza Virus 2012-04-29 Completed Universit y of Vaccine 00:00:00 [facility] Influenza Virus 2012-04-29 Completed Universit y of Vaccine 00:00:00 [place] [facility] Influenza Virus 2012-04-29 Completed Universit y of Vaccine 00:00:00 [facility] Influenza Virus 2012-04-29 Completed Universit y of Vaccine 00:00:00 [facility] Influenza Virus 2012-04-29 Completed Universit y of Vaccine 00:00:00 [place] [facility] Influenza Virus 2012-04-29 Completed Universit y of Vaccine 00:00:00 [facility] [place] [facility] Branch Influenza Virus 2012-04-29 Completed Universit y of Vaccine 00:00:00 [facility] Influenza Virus 2012-04-29 Completed Universit y of Vaccine 00:00:00 [place] [facility] Branch Influenza Virus 2012-04-29 Completed Universit y of Vaccine 00:00:00 [facility] Influenza Virus 2012-04-29 Completed Universit y of Vaccine 00:00:00 [facility] Influenza Virus 2012-04-29 Completed Universit y of Vaccine 00:00:00 [place] [facility] Influenza Virus 2012-04-29 Completed Universit y of Vaccine 00:00:00 [facility] [place] [facility] Branch Influenza Virus 2012-04-29 Completed Universit y of Vaccine 00:00:00 [facility] Branch Influenza Virus 2012-04-29 Completed Universit y of Vaccine 00:00:00 [place] [facility] Branch Influenza Virus 2012-04-29 Completed Universit y of Vaccine 00:00:00 [place] [facility] Branch Influenza Virus 2012-04-29 Completed Universit y of Vaccine 00:00:00 [facility] [place] [facility] Branch Influenza Virus 2012-04-29 Completed Universit y of Vaccine 00:00:00 [place] [facility] Branch Influenza Virus 2012-04-29 Completed Universit y of Vaccine 00:00:00 [facility] Vital Signs Vital Name Observation Time Observation Value Comments Source height 2022-08-02 17:30:00 66 [in_i] Common [facility] weight 2022-08-02 17:30:00 217 [lb_av] [facility] temperature 2022-08-02 17:30:00 98.7 [degF] Common [facility] bmi 2022-08-02 17:30:00 35.02 kg/m2 Common [facility] oximetry 2022-08-02 17:30:00 99 % [facility] respiratory rate 2022-08-02 17:30:00 18 /min Comm on [facility] blood pressure 2022-08-02 17:30:00 130 mm[Hg] Common [facility] - systolic [facility] blood pressure 2022-08-02 17:30:00 81 mm[Hg] [facility] - diastolic [facility] height 2022-06-29 14:00:00 66 [in_i] [facility] weight 2022-06-29 14:00:00 217 [lb_av] [facility] temperature 2022-06-29 14:00:00 98.6 [degF] [facility] bmi 2022-06-29 14:00:00 35.02 kg/m2 [facility] oximetry 2022-06-29 14:00:00 97 % [facility] respiratory rate 2022-06-29 14:00:00 17 /min Comm on [facility] blood pressure 2022-06-29 14:00:00 133 mm[Hg] Common [facility] - systolic [facility] blood pressure 2022-06-29 14:00:00 73 mm[Hg] Common [facility] - diastolic [facility] Systolic blood 2022-06-02 15:57:00 123 mm[Hg] Miriam vicente of pressure [place] [facility] Diastolic blood 2022-06-02 15:57:00 75 mm[Hg] Unive rsity of pressure [place] [facility] Heart rate 2022-06-02 15:57:00 94 /min Universi ty of [place] [facility] Body temperature 2022-06-02 15:57:00 36.89 Betzaida Univ ersity of [place] [facility] Respiratory rate 2022-06-02 15:57:00 18 /min Univ ersity of [place] [facility] Body height 2022-06-02 15:57:00 167.6 cm Universi ty of [place] [facility] Body weight 2022-06-02 15:57:00 96.571 kg Universi ty of [place] [facility] BMI 2022-06-02 15:57:00 34.36 kg/m2 Universi ty of [place] [facility] Oxygen saturation in 2022-06-02 15:57:00 97 /min University of Arterial blood by [place] [facility] chayito Pulse oximetry Branch Systolic blood 2022-05-30 23:56:00 125 mm[Hg] Univer sity of pressure [place] [facility] Diastolic blood 2022-05-30 23:56:00 87 mm[Hg] Unive rsity of pressure [place] [facility] Heart rate 2022-05-30 23:56:00 88 /min Universi ty of [place] [facility] Body temperature 2022-05-30 23:56:00 36.78 Betzaida Univ ersity of [place] [facility] Respiratory rate 2022-05-30 23:56:00 16 /min Univ ersity of [place] [facility] Body height 2022-05-30 23:56:00 167.6 cm Universi ty of [place] [facility] Body weight 2022-05-30 23:56:00 99.338 kg [facility]i ty [facility] [place] [facility] BMI 2022-05-30 23:56:00 35.35 kg/m2 Universi ty of [place] [facility] Oxygen saturation in 2022-05-30 23:56:00 98 /min University of Arterial blood by [place] [facility] chayito Pulse oximetry Branch Systolic blood 2022-05-23 18:58:00 126 mm[Hg] Univer sity of pressure [place] [facility] Diastolic blood 2022-05-23 18:58:00 83 mm[Hg] Unive rsity of pressure [place] [facility] Heart rate 2022-05-23 18:58:00 76 /min Universi ty of [place] [facility] Body temperature 2022-05-23 18:58:00 37 Betzaida [facility] ersity of [place] [facility] Respiratory rate 2022-05-23 18:58:00 18 /min Univ ersity of [place] [facility] Body height 2022-05-23 18:58:00 167.6 cm Universi ty of [place] [facility] Body weight 2022-05-23 18:58:00 98.385 kg Universi ty of [place] [facility] BMI 2022-05-23 18:58:00 35.01 kg/m2 Universi ty of [place] [facility] [place] Oxygen saturation in 2022-05-23 18:58:00 97 /min University of Arterial blood by [facility] chayito Pulse oximetry Branch Systolic blood 2022-04-07 10:09:00 128 mm[Hg] Univer sity of pressure [place] [facility] [place] Diastolic blood 2022-04-07 10:09:00 86 mm[Hg] [facility] Heart rate 2022-04-07 10:09:00 77 /min Universi ty of [place] [facility] [place] Respiratory rate 2022-04-07 10:09:00 22 /min [facility] ersity of [place] [facility] [place] Oxygen saturation in 2022-04-07 10:09:00 96 /min University of Arterial blood by [place] [facility] chayito Pulse oximetry Branch Body temperature 2022-04-07 09:48:00 36.61 Betzaida [facility] ersity of [place] [facility] [place] Body height 2022-04-07 09:48:00 167.6 cm Universi ty of [place] [facility] Body weight 2022-04-07 09:48:00 102.059 kg Universi ty [facility] [place] [facility] BMI 2022-04-07 09:48:00 36.32 kg/m2 [facility] ty [facility] [place] [facility] HEIGHT 2021-12-20 11:03:00 167.6 cm WEIGHT 2021-12-20 11:03:00 101.016 kg HEIGHT 2021-12-09 16:59:00 167.6 cm WEIGHT 2021-12-09 16:59:00 95.255 kg HEIGHT 2021-12-20 11:03:00 167.6 cm WEIGHT 2021-12-20 11:03:00 101.016 kg HEIGHT 2021-12-09 16:59:00 167.6 cm WEIGHT 2021-12-09 16:59:00 95.255 kg Systolic blood 2021-11-24 14:26:00 123 mm[Hg] Univer sity [facility] Diastolic blood 2021-11-24 14:26:00 83 mm[Hg] Unive rsity [facility] Heart rate 2021-11-24 14:26:00 80 /min Universi ty [facility] Body temperature 2021-11-24 14:26:00 37.11 Betzaida [facility] 2021-11-24 14:26:00 18 /min [facility] Body height 2021-11-24 14:26:00 167.6 cm Universi ty [facility] Body weight 2021-11-24 14:26:00 98.793 kg [facility] BMI 2021-11-24 14:26:00 35.15 kg/m2 [facility] Systolic blood 2021-12-20 14:09:00 145 mm[Hg] [facility] Diastolic blood 2021-12-20 14:09:00 87 mm[Hg] [facility] Heart rate 2021-12-20 14:09:00 60 /min [facility] Body temperature 2021-12-20 14:09:00 36.78 Betzaida [facility] Respiratory rate 2021-12-20 14:09:00 16 /min [facility] Oxygen saturation in 2021-12-20 14:09:00 98 /min [facility] Arterial blood by Medical Ce nter Pulse oximetry Body height 2021-12-20 11:03:00 167.6 cm [facility] Body weight 2021-12-20 11:03:00 101.016 kg [facility] BMI 2021-12-20 11:03:00 35.94 kg/m2 [facility] Procedures Procedure Date / Time Performing Clinician Source Performed MEDICAL 2022-06-12 06:01:00 Doctor Unassigned, No [facility] RELEASE/CLEARANCE FORMS Name [facility] Branch POCT URINALYSIS 2022-05-30 23:58:00 Aurora Rossi o f [facility] EXTERNAL PROVIDER - ADC 2022-05-22 05:01:00 Doctor Unassigned, N o [facility] REFERRAL Name [facility] XR CHEST 1 VW 2022-04-07 10:28:03 Khoi Bro [facility] URINALYSIS 2022-04-07 10:12:00 Khoi Bro [facility] POCT TEST 2022-04-07 10:12:00 Khoi Bro [facility] TROPONIN I 2022-04-07 10:11:00 Khoi Bro [facility] BASIC METABOLIC PANEL 2022-04-07 10:11:00 Khoi Bro [facility] (NA, K, CL, CO2, Medical Branch GLUCOSE, BUN, CREATININE, CA) CBC WITH DIFF 2022-04-07 10:11:00 Khoi Bro [facility] D-DIMER 2022-04-07 10:11:00 Khoi Bro [facility] CONSENT/REFUSAL FOR 2022-04-07 09:44:40 Doctor Unassigned, No [facility] DIAGNOSIS AND TREATMENT Name [facility] EXTERNAL PROVIDER 2022-02-03 05:01:00 Doctor Unassigned, No [facility] RECORDS Name [facility] BI SCREENING 2021-12-21 16:51:00 Justin Sweet [facility] TOMOSYNTHESIS BILATERAL [facility] REPORT OF PROCEDURE - 2021-12-20 13:23:20 Ricky Templeton [facility] ENDOSCOPY URL Center ESOPHAGOGASTRODUODENOSCO 2021-12-20 12:31:00 Ricky [place]ton ed [facility] PY, WITH ENDOSCOPIC US Center POCT , URINE 2021-12-20 11:01:00 Bill Watts [facility] FL SMALL BOWEL SERIES 2021-12-07 16:11:42 Blue Ayala [facility] AUTHORIZATION TO RELEASE 2021-11-24 05:01:00 Doctor Unassigned, No [facility] PHI TO [facility] Name [facility] Plan of Care Planned Activity Planned Date Details Comments Source Future Scheduled 2024-11-[address] [facility] Test 00:00:00 (procedure) [code = [facility] Center [id number]] Future Scheduled 2024-11-[address] [facility] 00:00:00 malignant neoplasm of Medica l Center cervix (procedure) [code = 421727774] Future Scheduled 2022-12-[address] [facility] Test 00:00:00 [facility]ing [facility] Cent[facility] r Screening (12+) [code = Tobacco Cessation Counseling and Screening (12+)] Future Scheduled 2022-07-[address] [facility] Test 00:00:00 (12+) [code = Medical Center DEPRESSION SCREENING (12+)] Future Scheduled 2022-03-[address] [facility] Test 00:00:00 (#1) [code = Medical Center INFLUENZA VACCINE (#1)] Future Scheduled 1997 DTAP/TDAP/TD VACCINES [facility] Test 00:00:00 (1 - Tdap) [code = Medical C enter DTAP/TDAP/TD VACCINES (1 - Tdap)] Future Scheduled 1996-02-01 HEPATITIS C SCREENING [facility] Test 00:00:00 [code = HEPATITIS C Medical Center SCREENING] Future Scheduled 1978 COVID-19 VACCINE (#1) [facility] Test 00:00:00 [code = COVID-[address] VACCINE (#1)] Encounters Start End Encounter Admission Attending Care Care Encounter Source Date/Time Date/Time Type Type Clinicians Facility Department ID 2022-08-18 Outpatient [facility] [id number] Common 11:22:03 [id number] [facility] 2022-08-02 Outpatient [facility] [id number] Common 17:40:01 [id number] [facility] 2022-06-29 Outpatient [facility] [id number] Common 14:06:04 [id number] [facility] 2021-05-22 Emergency [facility] [id number] Univers 06:44:13 ity [facility] 2021-05-20 Emergency [facility] [id number] Univers 23:15:11 ity [facility] 2021-05-20 Emergency [facility] [id number] Univers 20:56:05 ity [facility] 2022-08-02 2022-08-02 Outpatient R JOSE ROBERTO, [facility] CENTER [id number] Univers 00:00:00 00:00:00 JENNIFER thorpey o f [facility] 2022-08-02 2022-08-02 OFFICE STLMLC STLMLC [id number] Co mmon 00:00:00 00:00:00 VISIT Spirit ESTAB PT - CHI LEVEL 4 [facility] 2022-07-13 2022-07-13 Outpatient R JUAN, [facility] [id number] Univers 15:30:00 15:30:00 ERA ity [facility] 2022-06-29 2022-06-29 OFFICE STLMLC STLMLC [id number] Co mmon 00:00:00 00:00:00 VISIT NEW Spir it PT LEVEL 3 - CHI [facility] 2022-06-14 2022-06-14 Telephone [facility] 1.2.644.873 [id number] Univers 00:00:00 00:00:00 Jennifer FALK 350.1.13.10 it[place] [phone] Wa dical NAL [address] [place] [address] 2022-06-12 2022-06-12 Telephone [facility] 1.2.359.544 [id number] Univers 00:00:00 00:00:00 Jennifer FALK 350.1.13.10 it[place] [phone] Wa dical NAL [address] [place] [address] 2022-06-12 2022-06-12 Orders Doctor DANNIELLE 1.2.840.114 [id number] Univers 00:00:00 00:00:00 Only Unassigned, JORDYN 350.1.13.10 ity of [place] [facility] 4.2.7.2.686 Kevin as [id number] [address] 2022-06-08 2022-06-08 Patient [facility] 1.2.840.114 [id number] Univers 00:00:00 00:00:00 Secure Msg Jennifer FALK 350.1.13.10 it[place] [id number] Wa dical NAL [address] [facility] 2022-06-07 2022-06-07 Outpatient R SALINAS, [facility] [id number] Univers 13:00:00 13:00:00 ERICK ity o f [facility] 2022-06-07 2022-06-07 Telephone Jose Roberto [facility] 1.2.828.175 [id number] Univers 00:00:00 00:00:00 Qiajaneenlucas DILEEP 350.1.13.10 it[place] [phone] Wa dical NAL 9 [facility] 2022-06-06 2022-06-06 Patient Doctor [facility] 1.2.840.114 [id number] Univers 00:00:00 00:00:00 Secure Msg Unassigned, HEALTH 350.1.13.10 [place] [phone] [place] [address] [place] OFFICE BUILDING 2022-06-03 2022-06-03 Outpatient R RADIOLOGY [facility] [id number] Univers 09:03:29 23:59:00 ity of [facility] 2022-06-03 2022-06-03 Hospital Radiology [facility] 1.2.840.114 [id number] Univers 09:03:29 23:59:00 Encounter DILEEP 350.1.13.10 it[place] [facility] [place].2.[place] [id number] [facility] [address] 2022-06-02 2022-06-02 Outpatient R JOSE ROBERTO [facility] [id number] Univers 09:40:00 10:12:36 CONNORLUCAS johann o f [facility] 2022-06-02 2022-06-02 Office [facility] 1.2.840.114 [id number] Univers 09:40:00 10:12:36 Visit Jennifer FALK 350.1.13.10 it[place] [id number] Wa dical NAL 059 [facility] 2022-05-30 2022-05-30 Urgent Aurora Rossi [facility] 1.2.840.114 [id number] Univers 20:40:00 20:40:00 [facility] 350.1.13.10 ity [facility] 4.2.7.2.686 Kevin as DIANNE?BLEA [phone] [facility] KNEY [address] [facility] 2022-05-30 2022-05-30 Outpatient R TYRONE, [facility] [id number] Univers 20:40:00 18:28:22 AURORA [facility] 2022-05-30 2022-05-30 Outpatient R UNKNOWN, [facility] [id number] Univers 17:45:00 17:45:00 ATTENDING [facility] 2022-05-30 2022-05-30 Outpatient R UNKNOWN, [facility] [id number] Univers 17:20:00 17:20:00 ATTENDING [facility] 2022-05-30 2022-05-30 Telephone [facility] 1.2.839.662 [id number] Univers 00:00:00 00:00:00 [facility] 350.1.13.10 ity [facility] 4.2.7.2.686 Jason HAMMOND [phone] Wa dical NAL 9 [facility] 2022-05-29 2022-05-29 Outpatient R JOSE ROBERTO, [facility] [id number] Univers 07:43:58 23:59:00 JENNIFER thorpey o [facility] 2022-05-29 2022-05-29 Outpatient R JOSE ROBERTO, [facility] [id number] Univers 08:00:00 08:00:00 JENNIFER ity o f [facility] 2022-05-27 2022-05-27 Outpatient R RADIOLOGY [facility] [id number] Univers 00:00:00 [facility] 2022-05-23 Outpatient R JOSE ROBERTO, [facility] [id number] Univers 13:40:00 14:16:18 JENNIFER thorpey o f [facility] 2022-05-23 2022-05-23 Office [facility] 1.2.840.114 [id number] Univers 13:40:00 14:16:18 Visit Jennifer FALK 350.1.13.10 ity of [facility] [place] [id number] [facility] 059 [facility] 2022-05-22 2022-05-22 Orders Doctor DANNIELLE 1.2.840.114 [id number] Univers 00:00:00 00:00:00 Only Unassigned, JORDYN 350.1.13.10 it[place] [facility] 4.2.7.2.686 Kevin as [id number] [facility] [address] [place] 2022-04-07 2022-04-07 Emergency [facility] [id number] Univers 04:56:00 06:34:00 KHOI wills [facility] 2022-04-07 2022-04-07 [facility] 1.2.667.086 [id number] Univers 04:56:00 06:34:00 Khoi FALK 350.1.13.10 i ty [place] [id number] [facility] [address] 2022-02-03 2022-02-03 Orders Doctor DANNIELLE 1.2.840.114 [id number] Univers 00:00:00 00:00:00 Only Unassigned, JORDYN 350.1.13.10 [place] [facility] 4.2.7.2.686 Kevin as [phone] [facility] [address] 2021-12-21 2021-12-21 [facility] [id number] Univers 11:24:37 23:59:00 JUSTIN wills [facility] 2021-12-21 2021-12-21 [facility] 1.2.840.114 [id number] Univers 11:20:00 23:59:00 Encounter Justin FALK 350.1.13.10 ity [place] [facility] [place] [id number] [facility] [address] 2021-12-20 2021-12-21 Outpatient BRYN TEMPLETON M [id number] Evangeline 10:21:13 10:22:56 [facility] 2021-12-20 2021-12-20 Outpatient EL NAS, [facility] [id number] [facility] 10:42:00 14:55:00 RICKY 2021-12-20 2021-12-20 [facility] [id number] 10:42:00 14:55:00 Encounter [facility] 2021-12-20 2021-12-20 Surgery [facility] [id number] 13:00:00 13:30:00 [facility] 2021-12-20 2021-12-20 Anesthesia Bill Watts [facility] [id number] 12:36:00 13:10:00 Event [facility] 2021-12-20 2021-12-20 Travel [facility] [id number] [facility] 00:[facility] 00:00:00 [facility] 2021-12-09 2021-12-09 Outpatient EL [facility] [id number] [facility] 17:07:01 23:59:00 2021-12-09 2021-12-09 [facility] [id number] 16:05:00 23:59:[address] [facility] 2021-12-09 2021-12-09 Travel [facility] [id number] [facility] 00:[facility]:00 00:00:00 [facility] 2021-12-07 2021-12-07 Outpatient [facility] [id number] Univers 07:39:14 23:59:00 BLUE thorpey [facility] 2021-12-07 2021-12-07 [facility] 1.2.840.114 [id number] Univers 07:39:14 23:59:00 Encounter Blue FALK 350.1.13.10 [facility] 4.2.7.2.686 [facility] [id number] [facility] [address] [place] 2021-12-01 2021-12-01 Telephone Micki [facility] 1.2.840.114 [id number] Univers 00:00:00 00:00:00 Justin FALK 350.1.13.10 i ty [place] [phone] Wa dical [facility] 134 [facility] 2021-11-29 2021-11-29 Mechanical Systems Engineer 2, Adc Lab [facility] 1.2.840.114 [id number] Univers 09:15:00 09:30:00 Visit Justin Sweet 350.1.13.10 it[place] [id number] [facility] 353 [facility] 2021-11-29 2021-11-29 Outpatient R MICKI [facility] [id number] Univers 09:15:00 09:15:00 JUSTIN [facility] 2021-11-25 2021-11-25 Outpatient R [facility] [id number] Univers 09:00:00 [facility] 2021-11-25 2021-11-25 Outpatient R [facility] [id number] Univers 09:00:00 09:00:00 [facility] 2021-11-24 2021-11-24 Outpatient R MICKI [facility] [id number] Univers 09:15:00 10:14:06 JUSTIN [facility] 2021-11-24 2021-11-24 Office Micki [facility] 1.2.239.354 [id number] Univers 09:15:00 10:14:06 Visit Justin FALK 350.1.13.10 i ty [place] [id number] [address] 2021-11-24 2021-11-24 Outpatient [facility] [id number] Univers 09:15:00 10:14:06 JUSTIN [facility] 2021-11-24 2021-11-24 Orders Doctor DANNIELLE 1.2.840.114 [id number] Univers 00:00:00 00:00:00 Only Unassigned, JORDYN 350.1.13.10 [place] [facility] 4.2.7.2.686 Kevin as [phone] [address] 2021-11-16 2021-11-16 Mechanical Systems Engineer 2, Adc Lab [facility] 1.2.840.114 [id number] Univers 13:45:00 14:00:00 Visit Justin Sweet 350.1.13.10 it[place] [id number] Wa dical NAL 353 [facility] 2021-11-16 2021-11-16 Outpatient R MICKI [facility] [id number] Univers 13:45:00 13:45:00 JUSTIN [facility] 2021-11-16 2021-11-16 Office Micki [facility] 1.2.705.887 [id number] Univers 13:15:00 13:36:27 Visit Justin FALK 350.1.13.10 i ty [place] [id number] Wa dical NAL 134 [facility] 2021-11-16 2021-11-16 Outpatient R MICKI [facility] [id number] Univers 13:15:00 13:36:27 [facility] 2021-11-16 2021-11-16 Orders Doctor SPICER 1.2.840.114 [id number] Univers 00:00:00 00:00:00 Only Unassigned, JORDYN 350.1.13.10 [place] HOSP[facility] 4.2.7.2.686 Kevin as [id number] [address] 2021-09-19 2021-09-19 Outpatient R MICHEL MALHOTRA [facility] [id number] Univers 14:00:00 [facility] 2021-08[facility]24 2021-08-24 Emergency X SINGER [facility] ERT [id number] Univers 09:40:00 11:03:00 SEVEN [facility] 2021-08-24 2021-08-24 Emergency [facility] 1.2.290.061 [id number] Univers 09:40:00 11:03:00 Seven FALK 350.1.13.10 i ty [place] [id number] [facility] [address] 2021-08-24 2021-08-24 Letter DANNIELLE Valle 1.2.840.114 [id number] Univers 00:00:00 00:00:00 (Out) Fozia Stapleton JORDYN 350.1.13.10 it y of [facility] 4.2.7.2.686 Kevin as [phone] [facility] [address] 2021-05-06 2021-05-06 Case Vishnu Devries 1.2.840.114 [id number] Univers 00:00:00 00:00:00 Management Nita Knapp 350.1.13.10 ity [facility] [place]2.7.2.[place] [id number] [place] [address] [place] 2021-03-03 2021-03-03 Outpatient [facility] [id number] Univers 15:40:00 15:40:00 TERENCE [facility] 2020-10-12 2020-10-12 Outpatient R [facility] [id number] Univers 15:45:00 15:45:00 REMINGTON wills o f [facility] 2020-10-06 2020-10-06 Emergency [facility] ERT [id number] Univers 16:15:00 18:51:00 ROHAN [facility] 2020-09-03 2020-09-03 Outpatient R SHIN, [facility] [id number] Univers 16:00:00 16:00:00 RALEIGH wills o f [facility] 2020-08-26 2020-08-26 Outpatient [facility] [id number] Univers 11:00:00 11:00:00 DONTA [facility] 2020-06-30 2020-06-30 Outpatient Kwaku [facility] [id number] Univers 00:00:00 00:00:00 REMINGTON wills o oneil [facility] 2020-06-07 2020-06-07 Outpatient Kwaku DIOP [facility] [id number] Univers 13:30:00 13:30:00 REMINGTON wills o f [facility] 2020-06-04 2020-06-04 Outpatient Kwaku [facility] [id number] Univers 10:45:00 10:45:00 DANNIELLE [facility] 2020-05-07 2020-05-07 Outpatient Kwaku [facility] [id number] Univers 09:30:00 09:30:00 [facility] 2020-04-30 2020-04-30 Outpatient Kwaku [facility] [id number] Univers 11:00:00 11:00:00 [facility] 2020-04-29 2020-04-29 Outpatient Kwaku [facility] [id number] Univers 00:00:00 00:00:00 [facility] 2020-04-27 2020-04-27 Outpatient Kwaku [facility] [id number] Univers 13:30:00 13:30:00 [facility] Results Test Description Test Time Test Comments Results Result Comments Source POCT URINALYSIS W SPECIFIC GRAVITY 2022-05-30 23:58:00 Test Item Value Reference Range Interpretation Comme nts POCT U SP GRAV (test code = 3255) 1.020 mg/dl 1.005-1.025 POCT PH U (test code = 3254) 6 mg/dl 5-8 POCT U LEUK EST (test code = 3263) neg Negative - Negative POCT U NIT (test code = 3262) neg Negative - Negative POCT U PROT (test code = 3259) neg Negative - Negative POCT U GLU (test code = 3256) neg Negative - Negative POCT U KETONE (test code = 3258) neg Negative - Negative POCT U UROBILI (test code = 3260) neg 0.2-1 POCT U BILI (test code = 3261) neg Negative - Negative POCT U BLD (test code = 3257) trace Negative - Negative POCT U COLOR (test code = 3266) yellow POCT U APPEAR (test code = 3267) clear Lab Interpretation (test code = 32909-9) Abnormal [id number] 10:55:41 Test Item Value Reference Interpretation Comments Range D-DIMER (test code = See_Comment [Autom ated 3345778784) message] The system which generated this result transmitted reference range : <0.41 ?g/mL (FEU). The reference range was not used to interpret this result as normal/abnormal . SOURAV (test code = This test may be SOURAV) used in conjunction with a clinical pretest probability (PTP) assessment model to exclude venous thromboembolism (VTE) in patients suspected of deep venous thrombosis (DVT) and pulmonary embolism (PE) A D-Dimer value less than 0.50 ?g/ml (FEU) has a negative predicative value of 96 to 100% (95% CI)and 97 to 100% (95% CI) as an aid in the diagnosis of deep vein thrombosis (DVT) and pulmonary embolism when there is low or moderate pretest probability of PE or DVT. D-Dimer values are expressed in initial fibrinogen equivalent units (FEU)" The assay results should be used with other information, including the clinical context, in forming a diagnosis. Lab Interpretation Normal (test code = 47627-5) [facility] [id number] 10:53:59 Test Item Value Reference Interpretation Comments Range TROPONIN I (test 0.002 ng/mL See_Comment [Automated code = 4555427798) message] The system which generated this result transmitted reference range : <=0.034. The reference range was not used to interpret this result as normal/abnormal . SOURAV (test code = Reference (Normal) SOURAV) Range (defined by the 99th percentile reference limit): <= 0.034 ng/mL Note: Cardiac troponin begins to rise 3-4 hours after the onset of ischemia. Repeat in 4-6 hours if the sample was drawn within 3-4 hours of the onset of the symptom and found normal. Diagnosis of myocardial injury is made with acute changes in cTn concentrations with at least one serial sample above the 99th percentile upper reference limit (URL), taken together with the patient's clinical presentation. Biotin has been reported to cause a negative bias, interpret results relative to patient's use of biotin. Lab Interpretation Normal (test code = 15448-4) [facility] (NA, K, CL, CO2, GLUCOSE, BUN, CREATININE, CA)2022-04-07 10:42:15 Test Item Value Reference Range Interpretation Comments NA (test code = 139 mmol/L 135-145 0024411331) K (test code = 4.1 mmol/L 3.5-5 2095827648) CL (test code = 105 mmol/L 98-108 4835153515) CO2 TOTAL (test code 29 mmol/L 23-31 = 1485309930) AGAP (test code = 2-16 6562486032) BUN (test code = 13 mg/dL 7-23 1150132308) GLUCOSE (test code = 95 mg/dL 70-110 5931643800) CREATININE (test code 0.72 mg/dL 0.5-1.04 = 2738841767) CALCIUM (test code = 9.1 mg/dL 8.6-10.6 9353619985) eGFR (test code = mL/min/1.73m2 8577668231) SOURAV (test code = SOURAV) Association of Glomerular Filtration Rate (GFR) and Staging of Kidney Disease* + + +- +| GFR (mL/min/1.73 m2) ?| With Kidney Damage ?| ?Without Kidney Damage+ ------+ ----+ ------+| ?>90 ?| ?Stage one ?| ? Normal ?+ -+ + -+| ?60-89 ?| ?Stage two ?| ? Decreased GFR ? + + +- +| ?30-59 ?| ?Stage three ?| ? Stage three ? + + +- +| ?15-29 ?| ?Stage four ? | ? Stage four ?+ -+ + -+| ?<15 (or dialysis) ? ?| ?Stage five ? | ? Stage five ?+ -+ + -+ *Each stage assumes the associated GFR level has been in effect for at least three months. ?Stages 1 to 5, with or without kidney disease, indicate chronic kidney disease. Notes: Determination of stages one and two (with eGFR >59mL/min/1.73 m2) requires estimation of kidney damage for at least three months as defined by structural or functional abnormalities of the kidney, manifested by either:Pathological abnormalities or Markers of kidney damage (including abnormalities in the composition of the blood or urine or abnormalities in imaging tests). [facility] WITH [id number] 10:28:34 Test Item Value Reference Range Interpretation Comments WBC (test code = See_Comment H [Automated 6690-2) message] The sy stem which generated this result transmitted reference range : 4.30 - 11.10 10*3/?L. The reference range was not used to interpret this result as normal/abnormal . RBC (test code = See_Comment [Automated 789-8) message] The sy stem which generated this result transmitted reference range : 3.93 - 5.25 10*6/?L. The reference range was not used to interpret this result as normal/abnormal . HGB (test code = 14.2 g/dL 11.6-15 718-7) HCT (test code = 42.6 % 35.7-45.2 4544-3) MCV (test code = 84.7 fL 80.6-95.5 787-2) MCH (test code = 28.2 pg 25.9-32.8 785-6) MCHC (test code = 33.3 g/dL 31.6-35.1 786-4) RDW-SD (test code = 43.4 fL 39-49.9 79982-0) RDW-CV (test code = 14.1 % 12-15.5 788-0) PLT (test code = See_Comment [Automated 777-3) message] The sy stem which generated this result transmitted reference range : 166 - 358 10*3/ ?L. The reference r alexis was not used to interpret this result as normal/abnormal . MPV (test code = 10.8 fL 9.5-12.9 35220-8) NRBC/100 WBC (test See_Comment [Automat ed code = 9467040748) message] The system which generated this result transmitted reference range : 0.0 - 10.0 /100 WBCs. The refer ence range was not u sed to interpret th is result as normal/abnormal . NRBC x10^3 (test code See_Comment [Auto mated = 6103540909) message] The s ystem which generated this result transmitted reference range : 10*3/?L. The reference range was not used to interpret this result as normal/abnormal . GRAN MAT (NEUT) % 67.7 % (test code = 770-8) IMM GRAN % (test code 0.40 % = 9288033975) LYMPH % (test code = 20.6 % 736-9) MONO % (test code = 9.9 % 5905-5) EOS % (test code = 1.1 % 713-8) BASO % (test code = 0.3 % 706-2) GRAN MAT x10^3(ANC) 8.95 10*3/uL 1.88-7.09 H (test code = 4862982623) IMM GRAN x10^3 (test 0.05 10*3/uL 0-0.06 code = 7687813299) LYMPH x10^3 (test code 2.73 10*3/uL 1.32-3.29 = 731-0) MONO x10^3 (test code 1.31 10*3/uL 0.33-0.92 H = 742-7) EOS x10^3 (test code = 0.15 10*3/uL 0.03-0.39 711-2) BASO x10^3 (test code 0.04 10*3/uL 0.01-0.07 = 704-7) Lab Interpretation Abnormal (test code = 01543-7) [facility] [id number] 10:12:00 Test Item Value Reference Range Interpretation Comments POCT PREG (test code = 1605) negative On board controls acceptable present with C Line (test code = 3574) POCT PREG LOT # (test code = [id number]) POCT PREG TEST DATE (test 2023-06-21 code = 3576) Lab Interpretation (test code = Normal 49803-8) [facility] , [id number] 11:04:00 Test Item Value Reference Range Interpretation Comments Test Urine, POC (test Negative code = 0659453) Control line present?, POC (test Yes code = 1299370) Background clear?, POC (test code Yes = 0271803) UPT Cassette Lot #, POC (test code 9493687 = [id number]) UPT Cassette Expiration Date, POC 06/21/2023 (test code = 3932193) Lab Interpretation (test code = Normal 28678-2) [facility]
[2022-09-07] MEDS ORDERED: MORPHINE 4 MG/ML SYR ONE (05:26)
[2022-09-07] MEDS ORDERED: ONDANSETRON 4 MG/2 ML VIAL ONE (05:26)
[2022-09-07 05:30] LABS: Urine Blood 1+ (Negative); Urine Glucose Negative (Negative); Urine Protein 3+ (Negative); Urine Specific Gravity 1.025 (1.005-1.030); Urine pH 6.5 (5.0-7.0)
[2022-09-07] MEDS ORDERED: NA CHLORIDE 0.9% 500 ML ONE (05:30)
[2022-09-07] MEDS ORDERED: FENTANYL CITR 100 MCG/2 ML ONE (05:44)
[2022-09-07 05:46] LABS: Absolute Lymphocytes (CBC) 2.7 K/uL (0.7-4.9); Hematocrit 42.8 % (36.0-45.0); MCV 85.2 fL (80-100); MPV 8.9 fL (7.6-11.3); RBC Red Blood Cell Count 5.03 M/uL (3.86-4.86)
[2022-09-07 05:56] LABS: Urine Specific Gravity/Preg 1.025 (1.005-1.030)
[2022-09-07] MEDS ORDERED: NA CHLORIDE 0.9% 50 ML ONE (05:56)
[2022-09-07] MEDS ORDERED: CEFTRIAXONE 1000 MG/VIAL ONE (05:56)
[2022-09-07 06:04] LABS: Albumin 3.8 g/dL (3.4-5.0); Bilirubin Total 0.4 mg/dL (0.2-1.0); Potassium 3.4 mmol/L (3.5-5.1); Protein, Total 7.4 g/dL (6.4-8.2)
[2022-09-07] MEDS ORDERED: HYDROMORPHONE HCL 1 MG/ML INJ ONE (06:26)
--- NOTE | 2022-09-07 08:05 | EDPHYS ---
Physician Documentation [facility] Name: Janice Jansen Age: 42 yrs Sex: Female : 1980 Arrival Date: 09/07/2022 Time: 05:10 Bed 17 Private MD: ED Physician Scarlet Gupta HPI: 09/07 06:25 This 42 yrs old Female presents to ER via Wheelchair with complaints of Low Back Pain. kdr 06:25 This 42 yrs old Female presents to ER via Wheelchair with complaints of Right flank kdr pain. 06:26 Patient presents with acute onset of right flank pain. She states that she had a kdr ureteral stent removed yesterday morning by Dr. Gayle. Initially there was some difficulty removing the stent. Ultimately it was successfully removed. Patient states she had considerable pain during portions of the removal process. Subsequent to the removal, the pain resolved until last evening when she was having constant aching in her right flank area. She was able to get to sleep but awoke somewhat later with excruciating pain to the right flank. She presents with significant pain that is resulting in her writhing in bed. Patient has some nausea but no vomiting. She has produced urine. She denies any abnormal bowel issues at this time.. Onset: The symptoms/episode began/occurred just prior to arrival. Severity of symptoms: At their worst the symptoms were incapacitating in the emergency department the symptoms are unchanged. The patient has not experienced similar symptoms in the past. The patient has been recently seen by a physician: Dr. Gayle/urology. 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 - Social history:: Smoking status: unknown. ROS: 06:26 Constitutional: Negative for fever, chills, and weight loss, Eyes: Negative for injury, kdr pain, redness, and discharge, ENT: Negative for injury, pain, and discharge, Neck: Negative for injury, pain, and swelling, Cardiovascular: Negative for chest pain, palpitations, and edema, Respiratory: Negative for shortness of breath, cough, wheezing, and pleuritic chest pain, Abdomen/GI: Negative for abdominal pain, nausea, vomiting, diarrhea, and constipation, : Negative for injury, bleeding, discharge, and swelling, MS/Extremity: Negative for injury and deformity, Skin: Negative for injury, rash, and discoloration, Neuro: Negative for headache, weakness, numbness, tingling, and seizure activity. Psych: Negative for depression, anxiety, suicide ideation, homicidal ideation, and hallucinations, Allergy/Immunology: Negative for hives, rash, and allergies, Endocrine: Negative for neck swelling, polydipsia, polyuria, polyphagia, and marked weight changes, Hematologic/Lymphatic: Negative for swollen nodes, abnormal bleeding, and unusual bruising. 06:26 Back: Positive for pain at rest, pain with movement, flank pain, on the right. Exam: 06:26 Constitutional: This is a well developed, well nourished patient who is awake, alert, kdr and in severe distress. Head/Face: Normocephalic, atraumatic. Eyes: Pupils equal round and reactive to light, extra-ocular motions intact. Lids and lashes normal. Conjunctiva and sclera are non-icteric and not injected. Cornea within normal limits. Periorbital areas with no swelling, redness, or edema. Neck: Trachea midline, no thyromegaly or masses palpated, and no cervical lymphadenopathy. Supple, full range of motion without nuchal rigidity, or vertebral point tenderness. No Meningismus. Chest/axilla: Normal chest wall appearance and motion. Nontender with no deformity. No lesions are appreciated. Cardiovascular: Regular rate and rhythm with a normal S1 and S2. No gallops, murmurs, or rubs. Normal PMI, no JVD. No pulse deficits. Respiratory: Lungs have equal breath sounds bilaterally, clear to auscultation and percussion. No rales, rhonchi or wheezes noted. No increased work of breathing, no retractions or nasal flaring. Abdomen/GI: Soft, non-tender, with normal bowel sounds. No distension or tympany. No guarding or rebound. No evidence of tenderness throughout. Back: No spinal tenderness. No costovertebral tenderness. Full range of motion. Skin: Warm, dry with normal turgor. Normal color with no rashes, no lesions, and no evidence of cellulitis. MS/ Extremity: Pulses equal, no cyanosis. Neurovascular intact. Full, normal range of motion. Neuro: Awake and alert, GCS 15, oriented to person, place, time, and situation. Cranial nerves II-XII grossly intact. Motor strength 5/5 in all extremities. Sensory grossly intact. Cerebellar exam normal. Normal gait. Psych: Awake, alert, with orientation to person, place and time. Behavior, mood, and affect are within normal limits. 06:26 Back: pain, that is severe, of the right mid back and right low back. Vital Signs: 05:24 BP 145 / 101; Pulse 84; Resp 20; Pulse Ox 98% on R/A; ha1 05:25 Weight 93.44 kg; Pain 10/10; kd3 05:30 Temp 98.2(O); kd3 05:43 BP 148 / 89; Pulse 72; Resp 20; Pulse Ox 99% on R/A; Pain 10/10; lg3 06:27 BP 130 / 83; Pulse 73; Resp 21 S; Pulse Ox 98% on R/A; lg3 07:30 BP 119 / 79; Pulse 82; Resp 16; Pulse Ox 97% on R/A; db 08:00 Temp 100.5(O); db 08:11 Pain 6/10; db 09:30 BP 98 / 62; Pulse 82; Resp 16; Pulse Ox 95% on R/A; db 10:00 BP 99 / 60; Pulse 88; Resp 16; Pulse Ox 98% on R/A; db MDM: 08:04 Patient medically screened. sp3 20:00 Data reviewed: vital signs, nurses notes, lab test result(s), radiologic studies. I kdr considered the following discharge prescriptions or medication management in the emergency department Medications were administered in the Emergency Department. See SEP. 09/07 05:28 Order name: CBC with Diff kdr 09/07 05:28 Order name: CMP; Complete Time: 06:23 kdr 09/07 05:28 Order name: Lipase; Complete Time: 06:23 kdr 09/07 05:30 Order name: Urine --Ancillary (enter results); Complete Time: 06:23 kd3 09/07 05:31 Order name: Urine Dipstick-Ancillary; Complete Time: 05:48 EDMS 09/07 05:51 Order name: Manual Differential EDMS 09/07 05:28 Order name: CT Abd/Pelvis - IV Contrast Only kdr 09/07 10:33 Order name: SARS RAPID em1 09/07 11:43 Order name: SARS-COV-2 Antigen Rapid EDMS 09/07 13:22 Order name: Urinalysis EDAR 09/07 05:28 Order name: IV Saline Lock; Complete Time: 05:29 kdr 09/07 05:28 Order name: Labs collected and sent; Complete Time: : kdr 09/07 05:28 Order name: Urine Dipstick-Ancillary (obtain specimen); Complete Time: : kdr 09/07 08:12 Order name: Diet Regular; Complete Time: 08:13 db Administered Medications: 05:28 Drug: Zofran (Ondansetron) 4 mg Route: IVP; Site: right antecubital; lg3 05:59 Follow up: Response: No adverse reaction; Nausea is decreased lg3 05:28 Drug: morphine 4 mg Route: IVP; Infused Over: 4 mins; Site: right antecubital; lg3 05:42 Follow up: Response: No adverse reaction; No change in condition; Pain is unchanged, lg3 physician notified 05:32 Drug: NS 0.9% 500 ml Route: IV; Rate: bolus; Site: right antecubital; kd3 13:15 Follow up: Response: No adverse reaction; IV Status: Completed infusion; IV Intake: db 500ml 05:42 Drug: fentaNYL (PF) 50 mcg Route: IVP; Site: right antecubital; lg3 06:26 Follow up: Response: No adverse reaction; No change in condition; Pain is unchanged, lg3 physician notified 05:59 Drug: Rocephin - (cefTRIAXone) 1 grams Route: IVPB; Infused Over: 30 mins; Site: right lg3 antecubital; 13:15 Follow up: Response: No adverse reaction; IV Status: Completed infusion; IV Intake: 50mldb 06:26 Drug: Dilaudid (HYDROmorphone) 1 mg Route: IVP; Site: right antecubital; lg3 08:11 Follow up: Response: No adverse reaction; Pain is decreased db 08:10 Drug: Tylenol 1000 mg Route: PO; db 09:54 Follow up: Response: No adverse reaction db 08:10 Drug: Dilaudid (HYDROmorphone) 1 mg Route: IVP; Site: right antecubital; db 09:54 Follow up: Response: No adverse reaction; Pain is decreased db Disposition Summary: 09/07/22 08:04 Hospitalization Ordered Hospitalization Status: Inpatient Admission sp3 Provider: Luis Hand sp3 Location: Telemetry/MedSurg (Inpatient) sp3 Condition: Stable sp3 Problem: new sp3 Symptoms: have worsened sp3 Bed/Room Type: Standard sp3 Room Assignment: 210(09/07/22 11:58) em1 Diagnosis - Pyelonephritis acute sp3 Forms: - Medication Reconciliation Form sp3 - SBAR form sp3 Signatures: Dispatcher [employer] EDMS Quinn Victoria MD MD kdr Martinez, Eric em1 Marybeth Lowe, LINDEN RN lg3 Scarlet Gupta MD MD sp3 Minal Rodriguez RN RN kd3 Kailee Paez RN RN db Corrections: (The following items were deleted from the chart) 11:58 08:04 sp3 em1
--- NOTE | 2022-09-07 08:05 | ER ---
Nurse's Notes [facility] Name: Janice Jansen Age: 42 yrs Sex: Female : 1980 Arrival Date: 09/07/2022 Time: 05:10 Bed 17 Private MD: Diagnosis: Pyelonephritis acute Presentation: 09/07 05:19 Chief complaint: Patient states: I have had a stent removed from my kidney yesterday kd3 and now my back pain is unbearable. It had tugged and gotten stuck when they were trying to take it out. I woke up about 0300 this morning in pain. I tried to take a hot bath but it has only gotten worse. Coronavirus screen: Vaccine status: Patient reports being unvaccinated. Ebola Screen: No symptoms or risks identified at this time. Risk Assessment: Do you want to hurt yourself or someone else? Patient reports no desire to harm self or others. Onset of symptoms was September 07, 2022. 05:19 Method Of Arrival: Wheelchair kd3 05:19 Acuity: NIKO 3 kd3 05:43 Initial Sepsis Screen: Does the patient meet any 2 criteria? No. Patient's initial lg3 sepsis screen is negative. Does the patient have a suspected source of infection? No. Patient's initial sepsis screen is negative. Triage Assessment: 05:21 General: Appears distressed, Behavior is cooperative, crying. Pain: Complains of pain kd3 in left low back, left mid back, right mid back and right low back. Neuro: Level of Consciousness is awake, alert, obeys commands, Oriented to person, place, time, situation. Cardiovascular: Patient's skin is warm and dry. Respiratory: Airway is patent Trachea midline Respiratory effort is even, unlabored, Respiratory pattern is regular, symmetrical. 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 - Social history:: Smoking status: unknown. Screenin:33 [facility] ED Fall Risk Assessment (Adult) History of falling in the last 3 months, lg3 including since admission No falls in past 3 months (0 pts). Abuse screen: Denies threats or abuse. Denies injuries from another. Nutritional screening: No deficits noted. Tuberculosis screening: No symptoms or risk factors identified. Assessment: 05:33 General: Appears distressed, uncomfortable, Behavior is cooperative, crying, restless. lg3 Pain: Complains of pain in right lower quadrant Pain radiates to right flank Pain currently is 10 out of 10 on a pain scale. Alleviated by Noted to be agitated, crying, guarding, moaning, resistant to movement, restless. Neuro: No deficits noted. Lane Agitation-Sedation Scale (RASS): +1 Restless Level of Consciousness is awake, alert, obeys commands, Oriented to person, place, time, situation. Cardiovascular: No deficits noted. Denies chest pain, shortness of breath, Capillary refill < 3 seconds Clubbing of nail beds is absent JVD is absent Patient's skin is warm and dry. Respiratory: No deficits noted. Airway is patent Trachea midline Respiratory effort is even, unlabored, Respiratory pattern is regular, symmetrical. GI: Abdomen is round non-distended, Bowel sounds present X 4 quads. Abd is soft X 4 quads Abdomen is tender to palpation in right upper quadrant and right lower quadrant Reports upper abdominal pain, cramping, nausea. : No deficits noted. No signs and/or symptoms were reported regarding the genitourinary system. EENT: No deficits noted. No signs and/or symptoms were reported regarding the EENT system. Derm: Skin is intact, is healthy with good turgor, Skin is diaphoretic, Skin is normal, Skin temperature is warm. Musculoskeletal: No deficits noted. No signs and/or symptoms reported regarding the musculoskeletal system. Circulation, motion, and sensation intact. Range of motion: intact in all extremities. 06:26 Pain: Complains of pain in right lower quadrant Pain radiates to right low back Pain lg3 currently is 10 out of 10 on a pain scale. Noted to be agitated, crying, guarding, moaning, resistant to movement, restless, Also complains of nausea, diaphoresis. 07:48 Reassessment: Patient appears in no apparent distress at this time. Patient and/or db family updated on plan of care and expected duration. Pain level reassessed. Patient is alert, oriented x 3, equal unlabored respirations, skin warm/dry/pink. patient ambulatory to the restroom. 09:03 Reassessment: patient provided food tray. db 09:53 Reassessment: Patient appears in no apparent distress at this time. Patient and/or db family updated on plan of care and expected duration. Pain level reassessed. Patient is alert, oriented x 3, equal unlabored respirations, skin warm/dry/pink. Patient states feeling better. Pain: Pain currently is 4 out of 10 on a pain scale. 10:16 Reassessment: Patient appears in no apparent distress at this time. Patient and/or db family updated on plan of care and expected duration. Pain level reassessed. Patient is alert, oriented x 3, equal unlabored respirations, skin warm/dry/pink. Dr. Hand Hospitalist at patient bedside. 12:00 Reassessment: see [facility] for continued charting. db Vital Signs: 05:24 BP 145 / 101; Pulse 84; Resp 20; Pulse Ox 98% on R/A; ha1 05:25 Weight 93.44 kg; Pain 10/10; kd3 05:30 Temp 98.2(O); kd3 05:43 BP 148 / 89; Pulse 72; Resp 20; Pulse Ox 99% on R/A; Pain 10/10; lg3 06:27 BP 130 / 83; Pulse 73; Resp 21 S; Pulse Ox 98% on R/A; lg3 07:30 BP 119 / 79; Pulse 82; Resp 16; Pulse Ox 97% on R/A; db 08:00 Temp 100.5(O); db 08:11 Pain 6/10; db 09:30 BP 98 / 62; Pulse 82; Resp 16; Pulse Ox 95% on R/A; db 10:00 BP 99 / 60; Pulse 88; Resp 16; Pulse Ox 98% on R/A; db ED Course: 05:10 Patient arrived in ED. ja2 05:11 Quinn Victoria MD is Attending Physician. kdr 05:11 Marybeth Lowe, LINDEN is Primary Nurse. lg3 05:21 Triage completed. kd3 05:21 Arm band placed on right wrist. kd3 05:28 Inserted saline lock: 20 gauge in right antecubital area, using aseptic technique. lg3 Blood collected. 05:33 Patient has correct armband on for positive identification. Placed in gown. Bed in low lg3 position. Call light in reach. Side rails up X 1. Client placed on continuous cardiac and pulse oximetry monitoring. NIBP monitoring applied. poultry cutter on. Door closed. Noise minimized. Warm blanket given. 06:22 CT Abd/Pelvis - IV Contrast Only In Process Unspecified. EDMS 07:07 Attending Physician role handed off by Quinn Victoria MD sp3 07:07 Scarlet Gupta MD is Attending Physician. sp3 08:04 Luis Hand MD is Hospitalizing Provider. sp3 13:14 No provider procedures requiring assistance completed. Patient admitted, IV remains in db place. Administered Medications: 05:28 Drug: Zofran (Ondansetron) 4 mg Route: IVP; Site: right antecubital; lg3 05:59 Follow up: Response: No adverse reaction; Nausea is decreased lg3 05:28 Drug: morphine 4 mg Route: IVP; Infused Over: 4 mins; Site: right antecubital; lg3 05:42 Follow up: Response: No adverse reaction; No change in condition; Pain is unchanged, lg3 physician notified 05:32 Drug: NS 0.9% 500 ml Route: IV; Rate: bolus; Site: right antecubital; kd3 13:15 Follow up: Response: No adverse reaction; IV Status: Completed infusion; IV Intake: db 500ml 05:42 Drug: fentaNYL (PF) 50 mcg Route: IVP; Site: right antecubital; lg3 06:26 Follow up: Response: No adverse reaction; No change in condition; Pain is unchanged, lg3 physician notified 05:59 Drug: Rocephin - (cefTRIAXone) 1 grams Route: IVPB; Infused Over: 30 mins; Site: right lg3 antecubital; 13:15 Follow up: Response: No adverse reaction; IV Status: Completed infusion; IV Intake: 50mldb 06:26 Drug: Dilaudid (HYDROmorphone) 1 mg Route: IVP; Site: right antecubital; lg3 08:11 Follow up: Response: No adverse reaction; Pain is decreased db 08:10 Drug: Tylenol 1000 mg Route: PO; db 09:54 Follow up: Response: No adverse reaction db 08:10 Drug: Dilaudid (HYDROmorphone) 1 mg Route: IVP; Site: right antecubital; db 09:54 Follow up: Response: No adverse reaction; Pain is decreased db Medication: 05:33 VIS not applicable for this client. lg3 Intake: 13:15 IV: 50ml; Total: 50ml. db 13:15 IV: 500ml; Total: 550ml. db Outcome: 08:04 Decision to Hospitalize by Provider. sp3 13:14 Admitted to Tele db 13:14 Condition: stable 13:14 Instructed on the need for admit. 14:07 Patient left the ED. db Signatures: Dispatcher [employer] EDMS Quinn Victoria MD MD kdr Marybeth Lowe RN RN lg3 Scarlet Gupta MD MD sp3 Nazia Rodriguez Kyli RN RN kd3 Moni Li RN RN ha1 Kailee Paez RN RN db
[2022-09-07 08:45] LABS: Blood Morphology Comment NOT SEEN (NOT SEEN); Platelet Estimate ADEQ
[2022-09-07] MEDS ORDERED: ONDANSETRON 4 MG/2 ML VIAL IV PRN (10:30)
--- NOTE | 2022-09-07 10:30 | P.HP ---
Certification for Inpatient Patient admitted to: Inpatient With expected LOS: >2 Midnights Practitioner: I am a practitioner with admitting privileges, knowledge of patient current condition, hospital course, and medical plan of care. Services: Services provided to patient in accordance with Admission requirements found in Title 42 Section 412.3 of the Code of Federal Regulations Patient History Date of Service: 09/07/22 Reason for admission: sepsis, UTI History of Present Illness: 42yo F, PMH: HTN, GERD Presented to ED due to worsening right flank/back pain that began yesterday after ureteral stent removal. Patient has chronic pain over last ~2 years and was recently diagnosed with R hydronephrosis and underwent ureteral stent placement a few weeks ago. She had some relief of her pain and had follow up appointment yesterday -- where her stent was removed. Immediately afterwards, she began to feel back pain. This worsened throughout the night at home, so she presented here. Denies fever at home, associated with nausea, decreased appetite. In the ED, noted to have sepsis, with significant leukocytosis, tachycardia, fever. Allergies No Known Allergies Allergy (Verified 08/22/22 11:25) Home Medications: RX: Metoprolol Succinate [Toprol Xl] 25 mg PO DAILY 08/22/22 RX: Omeprazole [Prilosec] 40 mg PO BEDTIME 08/22/22 Review of Systems 10-point ROS is otherwise unremarkable Physical Examination - Physical Exam General: Alert, Oriented x3, Mild distress HEENT: EOMI Neck: No LAD Respiratory: Clear to auscultation bilaterally, Normal air movement Cardiovascular: No edema, Regular rate/rhythm Gastrointestinal: Soft and benign, Non-distended, Tenderness (right side, right flank, right CVA) Musculoskeletal: No contractures, No erythema Integumentary: No rashes, No significant lesion Neurological: Normal speech, Normal strength at 5/5 x4 extr, Normal affect - Studies Laboratory Data (last 24 hrs) 09/07/22 05:30: Sodium 141, Potassium 3.4 L, BUN 17, Creatinine 0.97, Glucose 129 H, Total Bilirubin 0.4, AST 9 L, ALT 60 H, Alkaline Phosphatase 111, Lipase 86 09/07/22 05:30: WBC 24.90 H*, Hgb 13.9, Hct 42.8, Plt Count 360 Assessment and Plan - Advance Directives Does patient have a Living Will: No Does patient have a Durable POA for Healthcare: No Physician Review Additional Text: Problem List sepsis secondary to UTI, ureteritis, concern for pyelonephritis h/o right hydronephrosis, chronic HTN GERD recent stent removal (09/06)' cover empirically with IV rocephin inflammatory changes noted along R ureter on CT Urology consulted pain control - pt reports severe pain - dilaudid for breakthrough, norco IV fluids blood pressure noted to drop slightly after receiving pain medication Code: full Dispo: home, ~2-3 days Time Spent Managing Pts Care (In Minutes): 75
[2022-09-07 10:39] VITALS: BMI 32.2
[2022-09-07 11:43] LABS: SARS-CoV-2 Antigen Rapid Res Negative (Negative)
--- NOTE | 2022-09-07 12:20 | RAD REPORT ---
EXAM DESCRIPTION: CT ABDOMEN PELVIS WITH IV CONTRAST CLINICAL HISTORY: Right flank pain COMPARISON: None. 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 FINDINGS: Lower lungs are clear. Abdomen: The liver is normal in appearance. There is no biliary dilatation. Cholecystectomy was perfo rmed. The pancreas and spleen are normal in appearance. Adrenal glands and left kidney are normal. Th ere is mild right hydronephrosis. The right ureter is mildly dilated with enhancement of the urotheli um. There is no clear obstructing mass or calculus. Abdominal aorta is normal in course and caliber without aneurysm. There is no free air. There is no r etroperitoneal adenopathy. Pelvis: There is no bowel obstruction. Urinary bladder is unremarkable. There is no free fluid. Uteru s is normal in size. Appendix is normal. Skeleton: There are no acute osseous findings. No suspicious bony lesions. IMPRESSION: Mild right hydronephrosis and hydroureter with no clear etiology. Findings could be seco ndary to recently passed calculus among other etiologies. Electronically signed by: Montrell Ching MD 09/07/2022 6:50 AM FLOWER MACHINE OPERATOR Due to temporary technical issues with the PACS/Fluency reporting system, reports are being signed by the in house radiologists without review as a courtesy to insure prompt reporting. The interpreting radiologist is fully responsible for the content of the report.
[2022-09-07 13:21] LABS: Specific Gravity > 1.030 (1.005-1.030); Urine Bacteria <20 /HPF (<20); Urine Bilirubin NEGATIVE (Negative); Urine Blood 1+ (Negative); Urine Clarity Turbid (Clear); Urine Color Light-Yellow (Yellow); Urine Glucose NEGATIVE (Negative); Urine Mucus Slight /HPF (None Seen); Urine Protein TRACE (Negative); Urine Urobilinogen Normal (Normal); Urine pH 5.5 (5.0-7.0)
[2022-09-07] MEDS: HYDROCODONE/APAP 5/325 MG TAB PO PRN (14:28)
[2022-09-07] MEDS: NA CHLORIDE 0.9% 1,000 ML IV SCH (14:29)
[2022-09-07] MEDS: ENOXAPARIN 40 MG/0.4 ML SQ SCH (17:00)
[2022-09-07] MEDS: HYDROMORPHONE HCL 1 MG/ML INJ IV PRN (18:50)
[2022-09-07] MEDS ORDERED: ACETAMINOPHEN 325 MG TABLET PO PRN (20:24)
--- NOTE | 2022-09-07 20:31 | P.CNS ---
Date of Consult: 09/07/22 Reason for Consult: Right hydronephrosis Chief Complaint: Complicated UTI History of Present Illness: 42-year-old woman with hypertension and GERD, well-known to me via the urology clinic with significant right flank pain of a chronic nature associated with mi ld hydronephrosis/an extrarenal pelvis as suspected on CT. She was evaluated as an outpatient with a MAG3 Lasix renogram and found to have slightly delayed drainage of the right kidney relative to the left. While it was insignificant quantitatively, qualitatively it may have made a difference to the patient. As a result, because of the severity and chronicity of her pain, we discussed neck steps in evaluation to determine if her pain might be related to delayed renal/ureteral drainage/function. As a result, on 08/29/2022, she underwent cystoscopy with right retrograde pyelography and right ureteral stent placement. The stent was left on a tether for ease of subsequent removal, and she was recommended to take about a week to determine if the pain were better with the stent then without it. If so, I explained that her pain may indeed be related to delayed drainage. She apparently arranged with my clinic biomedical engineering technologist staff to have the stent removed on Sunday, 8 days later. It was done, and the patient notes she had significant discomfort following removal of the stent. Unfortunately, I was not informed of the patient's presence in the office and that the stent was removed or her response to the removal of the stent, but the patient notes that she went home and the pain progressively worsened overnight until she eventually presented to the emergency department early this morning. She was also running fever. CT scan imaging was reviewed in detail: Evidence of ureteritis with enhancement of the ureter with mild hydronephrosis associated WBC > 20 K As a result, I spoke to the hospitalist, Dr. Hand, and recommended IV antimicrobial with ceftriaxone given the likelihood that she had a low colony count UTI at the time of the stent removal which resulted in this eventuality. I have sent seen her as an inpatient, and she explained that with the stent in place, she did indeed have significant improvement in her right flank pain, which was the facet being evaluated. She also had some suprapubic discomfort along with some bothersome LUTS associated with the stent, but she was able to distinguish this new discomfort from her chronic flank pain. Examination: Patient well-appearing and in no acute distress Alert, awake, oriented x3 No dyspnea or sign of respiratory distress Ambulatory with ease Comfortable and well-appearing Assessment and recommendation: 42-year-old woman with hypertension and GERD with chronic right flank pain associated with mild hydronephrosis/an extrarenal pelvis as suspected on CT, delayed right renal/ureteral drainage relieved with right ureteral stent, now with ureteritis likely due to bacterial colonization of her urine resulting in complicated infection associated with stent removal 09/06/2022. -Continue IV antimicrobial therapy pending urine culture result, likely to be available within the next 3 days -Since she noted significant improvement in her right flank pain associated with the stent, on follow-up, we will discuss options for further evaluation to include MRI to evaluate for periureteral disease prior to any consideration for reconstruction as chronic stenting would not likely be a palatable option. -Toradol likely to be most effective for her pain if present Allergies No Known Allergies Allergy (Verified 08/22/22 11:25) Home Medications: Metoprolol Succinate [Toprol Xl] 25 mg PO DAILY 08/22/22 Omeprazole [Prilosec] 40 mg PO BEDTIME 08/22/22 - Social History Smoking Status: Unknown if ever smoked Place of Residence: Home Physical Examination Temp Pulse Resp BP Pulse Ox 100.8 F 85 16 116/65 98 09/07/22 16:00 09/07/22 16:00 09/07/22 16:00 09/07/22 16:00 09/07/22 16:00 Laboratory Data (last 24 hrs) 09/07/22 05:30: Sodium 141, Potassium 3.4 L, BUN 17, Creatinine 0.97, Glucose 129 H, Total Bilirubin 0.4, AST 9 L, ALT 60 H, Alkaline Phosphatase 111, Lipase 86 09/07/22 05:30: WBC 24.90 H*, Hgb 13.9, Hct 42.8, Plt Count 360 - Problems (1) Ureteritis due to infection Current Visit: Yes Status: Acute (2) EXTRARENAL PELVIS Current Visit: No Status: Chronic Conclusions/Impression: See assessment and plan in HPI Time Spent Managing Pts care (In Minutes): 25
[2022-09-08] MEDS: NA CHLORIDE 0.9% 1,000 ML IV SCH ×2 (00:32→08:57)
[2022-09-08] MEDS: HYDROMORPHONE HCL 1 MG/ML INJ IV PRN (02:31)
[2022-09-08] MEDS: HYDROCODONE/APAP 5/325 MG TAB PO PRN ×2 (06:13→18:51)
[2022-09-08 06:21] LABS: Absolute Lymphocytes (CBC) 2.7 K/uL (0.7-4.9); Hematocrit 34.2 % (36.0-45.0); Lymphocytes % 19.1 % (15.3-44.8); MCV 85.9 fL (80-100); RBC Red Blood Cell Count 3.98 M/uL (3.86-4.86)
[2022-09-08 06:32] LABS: Magnesium 1.7 mg/dL (1.6-2.4); Potassium 3.2 mmol/L (3.5-5.1)
[2022-09-08] MEDS ORDERED: POTASSIUM CL 40 MEQ in NA CHLORIDE 0.9% 500 ML IV SCH (08:00)
[2022-09-08] MEDS: ENOXAPARIN 40 MG/0.4 ML SQ SCH (08:57)
[2022-09-08] MEDS: CEFTRIAXONE 1,000 MG in NA CHLORIDE 0.9% 50 ML IVPB SCH (08:57)
[2022-09-08] MEDS: IBUPROFEN 600 MG TAB PO PRN ×2 (11:52→21:13)
--- NOTE | 2022-09-08 17:11 | P.PN ---
Date of Service: 09/08/22 Subjective: improving pain down less nausea urinating without issue, no hematuria ROS: 10 point ROS as noted above, otherwise negative Physical exam GEN: Alert, oriented, NAD HEENT: Normal conjunctiva, sclera anicteric CV: Regular rate and rhythm, no edema Pulm: Nonlabored respirations on room air ABD: Soft, mild-mod R flank tenderness Neuro: Normal speech, normal affect Problem List sepsis secondary to UTI, ureteritis, concern for pyelonephritis h/o right hydronephrosis, chronic HTN GERD recent stent removal (09/06) cover empirically with IV rocephin inflammatory changes noted along R ureter on CT Urology consulted pain control - dilaudid for breakthrough, norco improving IV fluids blood pressure noted to drop slightly after receiving pain medication Code: full Dispo: f/u cultures; anticipate home in 24-48hrs
[2022-09-08] MEDS ORDERED: Ringers Lactate 1,000 ML IV SCH (23:45)
[2022-09-09] MEDS: HYDROCODONE/APAP 5/325 MG TAB PO PRN ×2 (00:10→07:29)
[2022-09-09 03:18] LABS: Absolute Lymphocytes (CBC) 3.3 K/uL (0.7-4.9); Hematocrit 33.2 % (36.0-45.0); Lymphocytes % 25.7 % (15.3-44.8); MCV 85.1 fL (80-100); MPV 8.9 fL (7.6-11.3)
[2022-09-09 03:27] LABS: Potassium 3.5 mmol/L (3.5-5.1)
[2022-09-09] MEDS: CEFTRIAXONE 1,000 MG in NA CHLORIDE 0.9% 50 ML IVPB SCH (09:00)
[2022-09-09] MEDS: ENOXAPARIN 40 MG/0.4 ML SQ SCH (09:04)
[2022-09-09 09:41] VITALS: O2SAT 100
[2022-09-09 12:00] VITALS: BP 133/70; TEMP 98.1
--- NOTE | 2022-09-10 16:32 | P.DS ---
Admission Date: 09/07/22 Discharge Date: 09/09/22 Disposition: ROUTINE DISCHARGE Discharge Condition: GOOD Reason for Admission: sepsis, UTI Consultations: Urology - Dr. Gayle Brief History of Present Illness: 42yo F, PMH: HTN, GERD Presented to ED due to worsening right flank/back pain that began yesterday after ureteral stent removal. Patient has chronic pain over last ~2 years and was recently diagnosed with R hydronephrosis and underwent ureteral stent placement a few weeks ago. She had some relief of her pain and had follow up appointment yesterday -- where her stent was removed. Immediately afterwards, she began to feel back pain. This worsened throughout the night at home, so she presented here. Denies fever at home, associated with nausea, decreased appetite. In the ED, noted to have sepsis, with significant leukocytosis, tachycardia, fever. Hospital Course: Problem List sepsis secondary to UTI, ureteritis, concern for pyelonephritis h/o right hydronephrosis, chronic HTN GERD Patient presented with right abdominal/flank pain after ureteral stent removal. She was found to be febrile with significant leukocytosis and CT with concern for inflammation/infection along her right ureter. She had quick and significant improvement of her symptoms with IV ceftriaxone. She remained afebrile and her leukocytosis significantly improved. She felt much better and wanted to be discharged home. Discussed we did not have urine or blood culture results back, but given her significant improvement, it would be reasonable to be discharged on Vantin. Discussed a small possibility of having to come back to the hospital for IV antibiotics if resistant. She expressed understanding and agreement with the plan. Follow up PCP within 3-5 days. Urology in ~1 week Vital Signs/Physical Exam: Temp Pulse Resp BP Pulse Ox 98.1 F 67 16 133/70 98 09/09/22 11:59 09/09/22 11:59 09/09/22 11:59 09/09/22 11:59 09/09/22 11:59 General: Alert, In no apparent distress, Oriented x3 HEENT: EOMI, Sclerae nonicteric Neck: Supple, No LAD Respiratory: Clear to auscultation bilaterally, Normal air movement Cardiovascular: No edema, Regular rate/rhythm Gastrointestinal: Soft and benign, Non-distended, Tenderness (mild right-sided / flank) Musculoskeletal: No contractures, No tenderness Integumentary: No rashes, No significant lesion Neurological: Normal speech, Normal strength at 5/5 x4 extr, Normal affect Laboratory Data at Discharge: WBC 12.90 K/uL (4.3-10.9) H 09/09/22 03:03 Hgb 11.0 g/dL (12.0-15.0) L 09/09/22 03:03 Hct 33.2 % (36.0-45.0) L 09/09/22 03:03 Plt Count 244 K/uL (152-406) 09/09/22 03:03 Sodium 142 mmol/L (136-145) 09/09/22 03:03 Potassium 3.5 mmol/L (3.5-5.1) 09/09/22 03:03 BUN 10 mg/dL (7-18) 09/09/22 03:03 Creatinine 0.54 mg/dL (0.55-1.02) L 09/09/22 03:03 Glucose 139 mg/dL (74-106) H 09/09/22 03:03 Magnesium 1.7 mg/dL (1.6-2.4) 09/08/22 05:11 Total Bilirubin 0.4 mg/dL (0.2-1.0) 09/07/22 05:30 AST 9 U/L (15-37) L 09/07/22 05:30 ALT 60 U/L (13-56) H 09/07/22 05:30 Alkaline Phosphatase 111 U/L (45-117) 09/07/22 05:30 Lipase 86 U/L (73-393) 09/07/22 05:30 Home Medications: Metoprolol Succinate [Toprol Xl] 25 mg PO DAILY 08/22/22 Omeprazole [Prilosec] 40 mg PO BEDTIME 08/22/22 Cefpodoxime Proxetil [Vantin] 200 mg PO BID 12 Days #24 tab 09/09/22 New Medications: Cefpodoxime Proxetil [Vantin] 200 mg PO BID 12 Days #24 tab Physician Discharge Instructions: Patient presented with right abdominal/flank pain after ureteral stent removal. She was found to be febrile with significant leukocytosis and CT with concern for inflammation/infection along her right ureter. She had quick and significant improvement of her symptoms with IV ceftriaxone. She remained afebrile and her leukocytosis significantly improved. She felt much better and wanted to be discharged home. Discussed we did not have urine or blood culture results back, but given her significant improvement, it would be reasonable to be discharged on Vantin. Discussed a small possibility of having to come back to the hospital for IV antibiotics if resistant. She expressed understanding and agreement with the plan. Follow up PCP within 3-5 days. Urology in ~1 week Followup: Unknown,U [Primary Care Provider] - Time spent managing pt's care (in minutes): 45
== END 2022-09-09 14:35 | disposition home or self-care (01) | DRG 698 ==
LOC: ER 05:09 → ERHOLD 10:26 → 2ND 13:56
PROVIDERS: ADMIT Hospitalist; ATTEND Hospitalist
DX: T83.592A Infection and inflammatory reaction due to indwelling ureteral stent, initial encounter (principal); A41.9 Sepsis, unspecified organism; N10 Acute pyelonephritis; I10 Essential (primary) hypertension; K21.9 Gastro-esophageal reflux disease without esophagitis; N28.89 Other specified disorders of kidney and ureter; Z88.8 Allergy status to other drugs, medicaments and biological substances; Z79.899 Other long term (current) drug therapy; Z20.822 Contact with and (suspected) exposure to COVID-19; Y83.8 Other surgical procedures as the cause of abnormal reaction of the patient, or of later complication, without mention of misadventure at the time of the procedure
CPT/HCPCS: 36415; 74177; 80048; 80053; 81001; 81003; 81025; 83690; 83735; 84132; 85025; 87040; 87086; 87088; 87811; 94760; 96365; 96366; 96375; 99285; J1170; J1650; J2405; J3010; J3480; J7030; J7040; J7120; Q9967